=== PATIENT | female | born 1990 | race African-American/Black ===

== ENCOUNTER 2023-09-24 20:15 | Outpatient (REF) | payer OTHER, SELFPAY ==
[2023-09-28 12:10] LABS: Age Gdln ACOG Testing Note (.); HPV Aptima Negative (Negative); IGP, Aptima HPV, rfx 16/18,45 Note (.)
== END 2023-09-24 20:16 | disposition home or self-care (01) ==
LOC: LAB 20:15
PROVIDERS: PCP Obstetrics & Gynecology; Visit Provider Obstetrics & Gynecology
DX: Z01.419 Encounter for gynecological examination (general) (routine) without abnormal findings (principal)
CPT/HCPCS: 87624; G0145

== ENCOUNTER 2023-09-29 09:11 | Outpatient (OUT) | payer OTHER, SELFPAY ==
--- OUTSIDE RECORDS SUMMARY | 2023-09-29 09:14 | XMS_ITS | CCD ---
Author Name Unknown Address [address] [place] [id number] Organization [facility] Care Team Providers Care Thermodynamic Physicist Name Role Phone FRITZ CABRERA Attending Unavailable JAMES, FRITZ Admitting Unavailable UNKNOWN, PHYSICIAN Referring Unavailable UNKNOWN, PHYSICIAN Primary Care Unavailable KRIS, DR CORREIA Admitting Unavailable KRIS, DR CORREIA Attending Unavailable REQUEST, DR HOWELL LISTED Primary Care Unavaila veronica PONCE, DR CORREIA Consulting Unavailable LAURIE, CARLIN Attending Unavailable LAURIE, CARLIN Attending Unavailable LAURIE, CARLIN Referring Unavailable LAURIE, CARLIN Referring Unavailable LAURIE, CARLIN Referring Unavailable LAURIE, CARLIN Referring Unavailable LAURIE, CARLIN Referring Unavailable LAURIE, CARLIN Referring Unavailable LAURIE, CARLIN Attending Unavailable TRAVIS JENSEN Attending Unavailable LAURIE, CARLIN Attending Unavailable LAURIE, CARLIN Attending Unavailable MASOOD PONCE Attending Unavailable Allergies Allergy Classification Reported Allergen(s) Allergy Type Date of Onset Reaction(s) Facility (2 sources) Azithromycin Drug Allergy 08-06-2006 [facility] Repository (1 source) Azithromycin; Translations: [AZITHROMYCIN] Drug Allergy 05-02-2021 [facility] Repository Problems Active Problems Problem Classification Problem Date Documented Date Episodic/Chronic Immunizations and screening for infectious disease (1 source) Encounter for screening for human papillomavirus (HPV); Translations: [ENC SCREENING HUMAN PAPILLOMAVIRUS] Onset: 08-04-2022 Episodic Other nervous system disorders (2 sources) Other chronic pain; Translations: [Other chronic pain] Onset: 11-17-2022 Chronic Other screening for suspected conditions (not mental disorders or infectious disease) (4 sources) Encounter for screening for malignant neoplasm of cervix; Translations: [ENC SCREENING MALIG NEOPLASM CERV] Onset: 08-02-2022 Episodic Past or Other Problems Problem Classification Problem Date Documented Da te Episodic/Chronic Fracture of lower limb (2 sources) Displaced Maisonneuve's fracture of unspecified leg, subsequent encounter for closed fracture with routine healing; Translations: [Displaced Maisonneuve's fracture of unspecified leg, subsequent encounter for closed fracture with routine healing] Onset: 04-28-2022 Episodic Other non-traumatic joint disorders (2 sources) Pain in right ankle and joints of right foot; Translations: [Pain in right ankle and joints of right foot] Onset: 08-11-2022 Episodic Other non-traumatic joint disorders (2 sources) Effusion, right ankle; Translations: [Effusion, right ankle] Onset: 08-11-2022 Episodic Results Test Name Value Interpretation Reference Range Facility Follow-Upon 11-17-2022 Follow-Up [id number] Kori Mann 1990 F Date Provider Department Center 11/17/2022 TRAVIS JONES MP ORTHO MPORTHO Family History Family history unknown: Yes Family Status - Relation Status Age at Mother Alive Father Alive Level of Service:27201 [place] OFFICE/OUTPATIENT ESTABLISHED LOW MDM 20-29 MIN (GC) Reason for Visit and Comments: Pain [136] Normal [facility] Follow-Upon 10-27-2022 Follow-Up [id number] Kori Mann 1990 F Date Provider Department Center 10/27/2022 CARLIN WILSON MP ORTHO MPORTHO Family History Family history unknown: Yes Family Status - Relation Status Age at Mother Alive Father Alive Level of Service:10455 SC OFFICE/OUTPATIENT ESTABLISHED LOW MDM 20-29 MIN Reason for Visit and Comments: Follow-up [757679] Pain [136] [facility] Letter (Out)on 08-14-2022 Letter (Out) [id number] Kori Mann 1990 F Date Provider Department Center 08/14/2022 CARLIN WILSON MP ORTHO MPORTHO Family History Family history unknown: Yes Family Status - Relation Status Age at Mother Alive Father Alive [facility] Follow-Upon 08-11-2022 Follow-Up [id number] Kori Mann 1990 F Date Provider Department Center 08/11/2022CARLIN KELLY MPRTALEX Family History Family history unknown: Yes Family Status - Relation Status Age at Mother Alive Father Alive Level of Service:42582 SC OFFICE/OUTPATIENT ESTABLISHED LOW MDM 20-29 MIN Reason for Visit and Comments: Follow-up [769555] - Pt here for right ankle follow up with review of xr Normal [facility] Follow-Upon 06-12-2022 Follow-Up [id number] Kori Mann 1990 Date Provider Department Center 06/12/2022 CARLIN WILSON MP ORTHO MARCUSRTHO Family History Family history unknown: Yes Family Status - Relation Status Age at Mother Alive Father Alive Level of Service:97403 SC OFFICE/OUTPATIENT ESTABLISHED LOW MDM 20-29 MIN Reason for Visit and Comments: Follow-up [870721] - Pt here for right ankle with review of xr Normal [facility] Office Visiton 05-19-2022 Follow-up visit [id number] Kori Mann 1990 Date Provider Department Center 05/19/2022 CARLIN WILSON MP Family History Family history unknown: Yes Family Status - Relation Status Age at Mother Alive Father Alive Level of Service:37953 SC OFFICE/OUTPATIENT ESTABLISHED LOW MDM 20-29 MIN Reason for Visit and Comments: Pain [136] Normal [facility] Office Visiton 04-28-2022 Follow-up visit [id number] Kori Mann 1990 Provider Department Center 04/28/2022 CARLIN WILSON MP Family History Family Status - Relation Status Age at Mother Alive Father Alive Level of Service:41311 SC POSTOP FOLLOW UP VISIT RELATED TO ORIGINAL PX Reason for Visit and Comments: Follow-up [192787] - Pt present for right ankle review of x ray Normal [facility] ANKLE LEFT 3 Son 2 ANKLE LEFT 3 S [facility] Department of Radiology [address] [place] [phone] ======== Patient Name: ALISON MANN : 1990 Sex: F Age: Race: Black Pt. Location: 84 Patient Status: Ordered Date: 03/31/2022 8:25:00 AM Completed Date: 03/31/2022 08:28 AM Requesting Provider: CARLIN SULLIVAN Attending Provider: Report Copy To: Signs & Symptoms: M25.572 Pain in left ankle and joints of left foot I10 History: [place] Comments: Evaluate Exam: ANKLE LEFT 3 [facility] ======== ANKLE RIGHT 3 [facility] 03/31/2022 8:28 AM CLINICAL INDICATIONS: M25.572 Pain in left ankle and joints of left foot I10 TECHNOLOGIST COMMENTS: rt ankle surgery 02/24/ follow up QUESTION FOR THE RADIOLOGIST: Evaluate PROTOCOL: AP,Lateral and Oblique views of the right ankle were obtained. COMPARISON: XR right ankle 02/27/2022. IMPRESSION: Stable anatomic alignment and appearance of right ankle screw/plate fixation hardware without evidence for associated complication. Approved by:Kelly Burden03/31/2022 11:53 AM. I, Teresa Cardozo,have reviewed the image(s) and agree with the findings in this report. Electronically signed: Teresa Cardozo. Transcribed by: [email or web address], User Resident: KELLY PAUL Electronically Signed by: TERESA CARDOZO @ 03/31/2022 12:07 PM I personally read this/these film(s) with this resident Normal [facility] Comment on above: Order Comment: Evalu ate ANKLE RIGHT 3 [facility] 02-28-20 ANKLE RIGHT 3 [facility] Department of Radiology [address] [place] [id number] ======== Patient Name: ALISON MANN : 1990 Sex: F Age: Race: Black Pt. Location: Patient Status: D Ordered Date: 02/27/2022 9:15:00 AM Completed Date: 02/27/2022 09:18 AM Requesting Provider: FRITZ CABRERA Attending Provider: FRITZ CABRERA Report Copy To: Signs & Symptoms: Z48.89 Encounter for other specified surgical aftercare I10 History: [place] Comments: Exam: ANKLE RIGHT 3 S ======== ANKLE RIGHT 3 S 02/27/2022 9:18 AM SIGNS AND SYMPTOMS: Z48.89 Encounter for other specified surgical aftercare I10 TECHNOLOGIST COMMENTS: Ortho follow up for surgery to the right ankle x2 weeks ago. QUESTION FOR THE RADIOLOGIST: PROTOCOL: AP,Lateral and Oblique views were obtained. COMPARISON: 02/15/2022 FINDINGS: There is placement of a metallic plate and screws in the distal fibula with minimal 2 screws extending into the tibia screws appear intact. No acute fractures are seen. Normal-appearing ankle mortise joint. IMPRESSION: 1. Interval fixation of distal tibia/fibula. Electronically signed: Kolton Pemberton. Transcribed by: [id number], User Resident: Electronically Signed by: KOLTON PEMBERTON @ 02/28/2022 02:35 PM Normal [facility] Operative Reporton 2 Operative Report MR#: [id number] S [facility] Pt. Name: Alison Mann Room #: 0C Discharge Date: Birthdate: 1990 OPERATIVE REPORT DATE OF SURGERY: 02/16/2022 SURGEON: Fritz Cabrera M.D. PREOPERATIVE DIAGNOSIS: Right Maisonneuve ankle fracture. POSTPROCEDURE DIAGNOSIS: Right Maisonneuve ankle fracture. PROCEDURE PERFORMED: Open reduction and internal fixation of right ankle syndesmosis. ASSISTANTS: 1. Ty Jenkins MD, PGY-5. 2. Sheldon Thapa MD, PGY-4. 3. Mega Celis MD, PGY-2. 4. Arnaldo Tenorio MS-4. ANESTHESIA: General, endotracheal tube. FLUIDS: Please see anesthesia report. ESTIMATED BLOOD LOSS: 5 mL. IMPLANTS: Divina 4.0 mm semi-third tubular plate with associated cortical and cancellous screws. EXPLANTS: None. SPECIMENS: None. CULTURES: None. TOURNIQUET TIME: 15 minutes at 300 mmHg. FINDINGS: Stable fixation of right ankle syndesmotic injury at the end of the case. INDICATIONS FOR PROCEDURE: Patient is a 31-year-old female, who sustained a twisting injury to the right lower extremity resulting in a disruption of the syndesmotic ligaments and proximal fibular fracture, otherwise noted Maisonneuve fracture. This is an unstable ankle injury and normally requires fixation of the syndesmosis. This was discussed with the patient as well as potential risks, benefits, alternatives of operative versus non-operative treatments. Due to the instability present with this ligamentous injury, operative stabilization was decided upon. Informed consent was obtained in clinic visit. DESCRIPTION OF PROCEDURE: Patient was met in the preoperative holding area, where physical exam was performed. Informed written consent was confirmed to be correct. Operative extremity was marked with indelible ink at the time. The patient was transferred to the operative suite, where general anesthesia was induced. An area was secured with an endotracheal tube. A nonsterile tourniquet was applied to the right lower extremity before the right lower extremity was prepped and draped in normal sterile fashion. A time-out was performed identifying the patient by name, date of , medical record number, as well as procedure to be performed including site and laterality. Operative staff were also introduced at this time. Prior to incision, stress evaluation was done under fluoroscopy to confirm instability of ankle fracture. This was noted to be grossly unstable with widening of the syndesmosis in the medial clear space. The joint line was also found under fluoroscopy. An incision directly over the lateral aspect of the fibula was made down to the level of the bone being careful to protect any neurovascular structures. Soft tissue was cleaned from the edge of the bone using Carrillo elevator. A 4-hole one-third tubular plate was placed in the appropriate position and held in place distally by 4.0 mm cancellous screw and proximally by a 4 mm cortical screw. The syndesmosis was then drilled across under fluoroscopic visualization while the small upper clamps held appropriate reduction of the syndesmosis. This was a 4.0 mm fully-threaded cortical screw was placed in the distal position across the syndesmosis. A similar pathway was then drilled in the proximal hole and secured with a 2nd cortical screw. Tapia clamps were removed and syndesmosis was stressed without any medial opening. Final AP and lateral fluoroscopic visualization showed appropriate fixation of the syndesmosis and position of the plate. The wound was then thoroughly irrigated with Betadine and saline before being closed in normal layered fashion. A soft dressing was applied and a posterior slab splint was applied. The tourniquet was released at the end of the procedure. Anesthesia was reversed. The patient was extubated without complication. POSTOPERATIVE PLAN: Patient will recover from anesthesia in PACU before being discharged home. She will resort to a short course of oral narcotic pain medication, vitamin D and calcium supplementation, a 2 day course of prophylactic antibiotics standard protocol and stool softener due to narcotics. She will return to clinic in approximately 14 days for wound check and suture removal. We will anticipate her being nonweightbearing for approximately 8-12 weeks given the ligamentous nature of the injury. Dr. Fritz Cabrera was present, scrubbed, and immediately available for all critical portions of the procedure. Electronically Signed by: Fritz Cabrera M.D. 02/17/2022 09:40 A Fritz Ebraheim, M.D. I was present for the frazier and critical portions and I was otherwise immediately available to assist. Date Dict: 02/16/2022/03:56 P/Sheldon Thapa MD Date Trans: 02/16/2022 11:58 P/mmo [id number] Normal [facility] ANKLE RIGHT 2 [facility] 02-17-20 ANKLE RIGHT 2 [facility] Department of Radiology [address] [place] [phone] ======== Patient Name: ALISON MANN : 1990 Sex: F Age: Race: Black Pt. Location: OUTP Patient Status: O Ordered Date: 02/16/2022 7:10:00 AM Completed Date: 02/16/2022 04:23 PM Requesting Provider: FRITZ CABRERA Attending Provider: FRITZ CABRERA Report Copy To: Signs & Symptoms: Intra op c-arm, ORIF right ankle syndesmosis History: Intra op c-arm, ORIF right ankle syndesmosis Comments: Exam: ANKLE RIGHT 2 [facility] ======== ANKLE RIGHT 2 [facility] 02/16/2022 4:23 PM CLINICAL INDICATIONS: Intra op c-arm, ORIF right ankle syndesmosis TECHNOLOGIST COMMENTS: ORIF right ankle syndesmosis. Dr cabrera used 28 sec of fluoro time. 5 images. 1.16mGy QUESTION FOR THE RADIOLOGIST: PROTOCOL: AP(PA) and Lateral views were obtained. COMPARISON: None FINDINGS: ORIF right ankle syndesmosis. Dr cabrera used 28 sec of fluoro time. 5 images. Dose was 1.16mGy Intraoperative imaging during right ankle ORIF. IMPRESSION: Intraoperative imaging for treatment planning and localization. Technique as above. Refer to final operative report. Electronically signed: JEN JARRETT. Transcribed by: [email or web address], User Resident: Electronically Signed by: JEN JARRETT @ 02/17/2022 05:57 PM Normal [facility] POC GLUCOSE LABon 02-16-2022 Glucose [Mass/Vol] 77 mg/dL Normal 70-100 [facility] Comment on above: Performed By: #### 8 [id number] #### [facility] [address] POC URINE PREGNANCYon 2021 Beta HCG ( test) Ql (U) Negative Normal NEGATIVE [facility] Comment on above: Result Comment: Perf ormed in PACU Performed By: #### 8 4140 ####[facility] *MRSA/MSSA DNA NASALon 02-15 *MRSA/MSSA DNA NASAL Clinical Report: (D) Specimen: NASAL SWAB Collected: 02/15/2022 16:00 Status: Final Last Updated: 02/16/2022 10:32 MSSA DNA (Final) Methicillin Susceptible Staphylococcus aureus DNA Detected MRSA DNA (Final) Negative Normal [facility] Comment on above: Performed By: #### 3 1595 #### [facility] [address] ANKLE RIGHT 3 VWSon 02-16-20 22 ANKLE RIGHT 3 VWS [facility] Department of Radiology [address] [place] [phone] ======== Patient Name: ALISON MANN : 1990 Sex: F Age: Race: Black Pt. Location: 84 Patient Status: D Ordered Date: 02/15/2022 2:15:00 PM Completed Date: 02/15/2022 02:21 PM Requesting Provider: FRITZ CABRERA Attending Provider: FRITZ CABRERA Report Copy To: Signs & Symptoms: M25.571 Pain in right ankle and joints of right foot I10 History: Comments: Evaluate Exam: ANKLE RIGHT 3 [facility] ======== ANKLE RIGHT 3 [facility] 02/15/2022 2:21 PM CLINICAL INDICATIONS: M25.571 Pain in right ankle and joints of right foot I10 TECHNOLOGIST COMMENTS: right ankle pain s/p fall 1 week ago QUESTION FOR THE RADIOLOGIST: Evaluate PROTOCOL: AP,Lateral and Oblique views were obtained. COMPARISON: None FINDINGS: 3 views of the right ankle. There is normal bone density. No evidence of acute bony abnormality. Ankle mortise is preserved and minimal widening of the medial compartment. Also, there is widening of the syndesmosis. IMPRESSION: Widening of the medial ankle mortise and the syndesmosis likely representing interosseous ligament injury. No acute bony pathology. Electronically signed: Bro Rose. Transcribed by: [email or web address], User Resident: Electronically Signed by: BRO ROSE @ 02/18/2022 03:34 PM Normal [facility] Comment on above: Order Comment: Evalu ate APTTon 02-15-2022 aPTT Coag (Bld) [Time] 28.8 s Normal 25.0-35.0 [facility] Comment on above: Result Comment: ALL RESULTS MUST BE INTERPRETED WITH RESPECT TO BLOOD DRAWING ARTIFACT OR DILUTION ERROR OF ANTICOAGULANT AT THE TIME OF SAMPLING. THE APTT SHOULD NOT BE USED TO MONITOR UNFRACTIONATED HEPARIN THERAPY, THIS LABORATORY NO LONGER HAS AN ESTABLISHED THERAPEUTIC RANGE BASED ON THE APTT. IT IS RECOMMENDED THAT THE UFH - HEPARIN ASSAY (ANTI-XA ACTIVITY) BE USED FOR THIS PURPOSE. Performed By: #### 5 7307, 44503 #### [facility] [address] [place] [address], [facility] BASIC METABOLIC PANELon 07- Calcium [Mass/Vol] 9.3 mg/dL Normal 8.6-10.3 [facility] Comment on above: Performed By: #### 0 70, 83554 #### [facility] [address] [place] [address], [facility] Chloride [Moles/Vol] 107 mmol/L Normal 98-107 [facility] Comment on above: Performed By: #### 0 70, 30127 #### [facility] [address] [place] [address], [place] CO2 [Moles/Vol] 21 mmol/L Normal 21-[address] [facility] Comment on above: Performed By: #### 0 70, 88764 #### [facility] [address] [place] [address], [place] Creatinine [Mass/Vol] 0.73 mg/dL Normal 0.60-1.20 [facility] Comment on above: Performed By: #### 0 70, #### [facility] [address] [place] [address], [place] GFR/1.73 sq M.predicted among blacks MDRD (S/P/Bld) [Vol rate/Area] mL/min/{1.73_m2} Normal >60 [facility] Comment on above: Performed By: #### 0 70, 54388 #### [facility] [address] [place] [address], [place] GFR/1.73 sq M.predicted among non-blacks MDRD (S/P/Bld) [Vol rate/Area] mL/min/{1.73_m2} Normal >60 [facility] Comment on above: Performed By: #### 0 70, [address]5711 #### [facility] [address] [place] [id number], [facility] Glucose [Mass/Vol] 82 mg/dL Normal 70-100 [facility] Comment on above: Performed By: #### 0 70, #### [facility] [address] [facility] [place] [address], [facility] Potassium [Moles/Vol] 3.9 mmol/L Normal 3.5-5.1 [facility] Comment on above: Performed By: #### 0 70, #### [facility] [address] [place] [address], [facility] Sodium [Moles/Vol] 137 mmol/L Normal 136-145 [facility] Comment on above: Performed By: #### 0 70, #### [facility] [address] [facility] [place] [address], [facility] Urea nitrogen [Mass/Vol] 13 mg/dL Normal 7-25 [facility] Comment on above: Performed By: #### 0 70, 60272 #### [facility] [address] [facility] [place] [address], [facility] CBC W/DIFFon 02-15-2022 ABS IMM GRANS 0.0 10*3/uL Normal 0.0-0.2 [facility] Comment on above: Performed By: #### 5 3 #### [facility] [address] [place] [address], [facility] ABS NEUTROPHILS 4.0 10*3/uL Normal 1.6-7.6 [facility] Comment on above: Performed By: #### 5 0103 #### [facility] [address] [place] [address], [facility] Basophils (Bld) [#/Vol] 0.0 10*3/uL Normal 0.0-0.2 [facility] Comment on above: Performed By: #### 5 0103 #### [facility] [address] [place] [address], [facility] Basophils/100 WBC (Bld) 0.5 % Normal 0.0-1.0 [facility] Comment on above: Performed By: #### 5 0103 #### [facility] [address] [facility] [address], [facility] Eosinophils (Bld) [#/Vol] 0.0 10*3/uL Normal 0.0-0.5 [facility] Comment on above: Performed By: #### 102 #### [facility] [address] [place] [address], [facility] Eosinophils/100 WBC (Bld) 0.5 % Normal 0.0-6.0 [facility] Comment on above: Performed By: #### 5 3 #### [facility] [address] Erythrocyte distribution width (RBC) [Ratio] 12.6 % Normal 11.5-15.0 [facility] Comment on above: Performed By: #### 5 3 #### [facility] [address] [facility]. [address] Hematocrit (Bld) [Volume fraction] 39.8 % Normal 36.0-45.0 [facility] Comment on above: Performed By: #### 5 3 #### [facility] [address] [place] [address], [facility] Hemoglobin (Bld) [Mass/Vol] 13.3 g/dL Normal 12.0-15.0 [facility] Comment on above: Performed By: #### 5 0103 #### [facility] [address] IMMATURE GRANS 0.0 % Normal 0.0-1.0 [facility] Comment on above: Performed By: #### 5 3 #### [facility] [address] [place] [address], [facility] Lymphocytes (Bld) [#/Vol] 1.4 10*3/uL Normal 1.2-4.0 [facility] Comment on above: Performed By: #### 102 #### [facility] [address] [place] [address], [facility] Lymphocytes/100 WBC (Bld) 24.6 % Normal 20.0-45.0 [facility] Comment on above: Performed By: #### 102 #### [facility] [address] MCH (RBC) [Entitic mass] 29.1 pg Normal 27.0-33.0 [facility] Comment on above: Performed By: #### 5 102 #### [facility] [address] MCHC (RBC) [Mass/Vol] 33.4 g/dL Normal 32.0-35.0 [facility] Comment on above: Performed By: #### 5 3 #### [facility] [address] MCV (RBC) [Entitic vol] 87.1 fL Normal 82.0-98.0 [facility] Comment on above: Performed By: #### 5 3 #### [facility] [address] [place] [address], [facility] Monocytes (Bld) [#/Vol] 0.3 10*3/uL Normal 0.1-1.0 [facility] Comment on above: Performed By: #### 5 0103 #### [facility] [address] [facility] [place] [address], [facility] MONOS 5.5 % Normal 5.0-12.0 [facility] Comment on above: Performed By: #### 5 0103 #### [facility] [address] [facility] [place] [address], [facility] Neutrophils/100 WBC (Bld) 68.9 % Normal 40.0-72.0 [facility] Comment on above: Performed By: #### 5 0103 #### [facility] [address] [place] [address], [facility] Nucleated RBC/100 WBC (Bld) [Ratio] 0 % Normal 0-0 [facility] Comment on above: Performed By: #### 5 010 #### [facility] [address] PLAT CNT 273 10*3/uL Normal 150-400 [facility] Comment on above: Performed By: #### 5 0103 #### [facility] [address] [place] [address], [facility] RBC (Bld) [#/Vol] 4.57 10*6/uL Normal 3.80-5.00 [facility] Comment on above: Performed By: #### 5 3 #### [facility] [address] [place] [address], [facility] WBC (Bld) [#/Vol] 5.85 10*3/uL Normal 4.00-10.60 [facility] Comment on above: Performed By: #### 5 3 #### [facility] [address] POC SARS COV2 IDon 2 SARS-CoV-2 (COVID-19) RNA MIRNA+probe Ql (Unsp spec) Negative Normal NEGATIVE [facility] Comment on above: Result Comment: ID N OW COVID-19 assay performed on the ID NOW Instrument is a rapid molecular in vitro diagnostic test utilizing an isothermal nucleic acid amplification technology intended for the qualitative detection of nucleic acid from the SARS-CoV-2 virus in direct anterior nasal (nasal), nasopharyngeal or throat swabs from individuals who are suspected of COVID-19 by their healthcare provider within the first seven days of the onset of symptoms. Testing is limited to laboratories certified under the Clinical Laboratory Improvement Amendments of 1988 (CLIA), 42 U.S.C. ???263a,that meet the requirements to perform high, moderate, or waived complexity tests. The ID NOW COVID-19 assay is also authorized for use at the Point of Care (POC), i.e., in patient care settings operating under a CLIA Certificate of Waiver, Certificate of Compliance, or Certificate of Accreditation. Performed By: #### 3 1921 ####[facility] PROTHROMBIN TIMEon 2 INR Coag (PPP) [Relative time] 0.99 {INR} Normal 0.91-1.16 [facility] Comment on above: Result Comment: ACCC P RECOMMENDED INR FOR WARFARIN THERAPY ------ ------- CONDITION INR PROPHYLAXIS OF VENOUS THROMBOSIS 2-3 (HIGH-RISK SURGERY) TREATMENT OF VENOUS THROMBOSIS 2-3 TREATMENT OF PULMONARY EMBOLISM 2-3 PREVENTION OF SYSTEMIC EMBOLISM: 2-3 ACUTE MYOCARDIAL INFARCTION TISSUE HEART VALVES VALVULAR HEART DISEASE ATRIAL FIBRILLATION RECURRENT SYSTEMIC EMBOLISM MECHANICAL HEART VALVE 2.5-3.5 FROM: ORAL ANTICOAGULANTS. MECHANISM OF ACTION, CLINICAL EFFECTIVENESS, AND OPTIMAL THERAPEUTIC RANGE. CHEST 1995;108:231S-246S. Performed By: #### 5 7307, 49711 #### [facility] [address] [facility]. [address] PT Coag (PPP) [Time] 13.1 s Normal 12.3-14.8 [facility] Comment on above: Result Comment: ALL RESULTS MUST BE INTERPRETED WITH RESPECT TO BLOOD DRAWING ARTIFACT OR DILUTION ERROR OF ANTICOAGULANT AT THE TIME OF SAMPLING. Performed By: #### 5 7307, 07458 #### [facility] [address] [facility]. [address] VITAMIN D 25-HYDROXYon 02-15 VITAMIN D 25-OH 32.1 ng/mL Normal 30.0-80.0 [facility] Comment on above: Result Comment: >80. 0 Toxicity possible Performed By: #### 0 0071, 44226 #### [facility] [address] [facility]. [address] MRI Ankle w/o Righton 2021 MRI Ankle w/o Right HISTORY: Medial and lateral pain for 1 week. Recent fall. Ankle sprain. COMPARISON: Radiographs 02/07/2022 TECHNIQUE: Multiplanar multisequence MRI of the right ankle was performed without contrast. FINDINGS: The Achilles tendon is intact. The plantar fascia is intact and without thickening or nodularity. Tibialis posterior, flexor digitorum longus, and flexor digitorum longus tendons are intact. No space-occupying lesion within the tarsal tunnel. Peroneus longus and peroneus brevis tendons are intact. Extensor tendons are intact. The anterior and posterior tibiofibular ligaments are intact. The anterior and posterior talofibular ligaments and calcaneofibular ligament are intact. Superficial and deep fibers of the deltoid ligament are intact. Spring ligament is intact. Sinus tarsi fat is preserved. No well defined or measurable articular cartilage defect of the tibial plafond, talar dome, or subtalar joint. Moderate ankle joint effusion. No evidence of fracture or stress reaction of the visualized bones. Mild contusion of the posterior tibial plafond. Edema is present along the visualized portion of the distal tibia and interposed between the distal tibia and fibula. Abnormal signal and morphology of the anterior tibiofibular ligament Sub-cutaneous soft tissue edema of the medial and lateral ankle and dorsum of the foot. IMPRESSION: No acute fracture. Mild contusion of the posterior tibial plafond. Findings concerning for syndesmotic injury. Moderate ankle joint effusion. Report reported and signed by Junito Aviles on 02/14/20[address] [facility] [employer] Coding Summaryon 02-11-2019 Coding Summary CODING DATE: 02/11/2019 [facility] STATUS: Home PAYOR: Commercial Insurance ADMIT DX: REASON FOR VISIT DX: R07.9 Chest pain, unspecified FINAL DX: PRINCIPAL: R07.9 Chest pain, unspecified SECONDARY: PROCEDURES DOCTOR NAME DATE NOTE: The code number assigned matches the documented diagnosis and / or procedure in the patient's chart. However, the narrative phrase printed from the coding software may appear abbreviated, or result in slightly different terminology. Coded By: Alexia Hahn Date Saved: 02/11/2019 11:38 am [facility] Coding Summary CODING DATE: 02/11/2019 [facility] STATUS: Home PAYOR: Commercial Insurance APC DESCRIPTION 5521 Level 1 Imaging without Contrast ADMIT DX: REASON FOR VISIT DX: R07.9 Chest pain, unspecified FINAL DX: PRINCIPAL: R07.9 Chest pain, unspecified SECONDARY: PYMT PROC APC STAT DESCRIPTION DOCTOR NAME DATE NOTE: The code number assigned matches the documented diagnosis and / or procedure in the patient's chart. However, the narrative phrase printed from the coding software may appear abbreviated, or result in slightly different terminology. Coded By: Alexia Hahn Date Saved: 02/11/2019 11:37 am [facility] .Auto Diff 1on 02-04-2019 Auto Peñuelas % 8 % Normal 12 [facility] Comment on above: Performed By: #### 7 040998, 8788347, 0750159651, 34799648, 3028869750, 4748924, 2405854 #### [facility] (DEFAULT) [address] [place] [address] Baso Abs# 0.0 x10 Normal 0.0-0.2 [facility] Comment on above: Performed By: #### 7 702648, 8087463, 8502597186, 05868518, 1569079939, 5910606, 4952109 #### [facility] (DEFAULT) [address] [place] [address] 17199 Basophils/100 WBC (Bld) 0.6 % Normal 0.2-2.0 [facility] Comment on above: Performed By: #### 7 102393, 3919771, 2485476517, 24899073, 8801967930, 0482226, 0284220 #### [facility] (DEFAULT) [address] [place] [address] 62905 Eos Abs# 0.2 x10 Normal 0.0-0.4 [facility] Comment on above: Performed By: #### 7 674466, 1908991, 1997618761, 91667695, 6304017982, 2093754, 8862201 #### [facility] (DEFAULT) [address] [place] [address] 14715 Eosinophils/100 WBC (Bld) 3.4 % Normal 0.9-4.0 [facility] Comment on above: Performed By: #### 7 019902, 2287105, 6363720207, 04803858, 4751251884, 9065488, 4123465 #### [facility] (DEFAULT) [address] [place] [address] 34257 Lymphocytes (Bld) [#/Vol] 2.2 x10 Normal 1.3-2.9 [facility] Comment on above: Performed By: #### 7 291078, 7983132, 0489342373, 03638693, 0560741422, 5292000, 4118845 #### [facility] (DEFAULT) [address] [place] [address] 35073 Lymphocytes/100 WBC (Bld) 47 % Normal 14-48 [facility] Comment on above: Performed By: #### 7 589822, 4663425, 9514796859, 21299494, 5983736495, 4889866, 6553676 #### [facility] (DEFAULT) [address] [place] [address] 35718 Peñuelas Abs# 0.4 x10 Normal 0.0-0.8 [facility] Comment on above: Performed By: #### 7 030708, 6108797, 1940558688, 81407910, 1439018086, 5802756, 8053420 #### [facility] (DEFAULT) [address] [place] [address] Neut Abs# 1.9 x10 Normal 1.5-9.2 [facility] Comment on above: Performed By: #### 7 412799, 6419311, 9783884732, 91118223, 2301843151, 3197886, 6411346 #### [facility] (DEFAULT) [address] [place] [address] Neutrophils/100 WBC (Bld) 41 % Low 44-88 [facility] Comment on above: Performed By: #### 7 926027, 7332276, 8543025671, 76114932, 2864135158, 4689923, 9288488 #### [facility] (DEFAULT) [address] [place] [address] CBC w/ Auto Diffon 9 Erythrocyte distribution width (RBC) [Ratio] 13.3 % Normal 11.5-15.0 [facility] Comment on above: Performed By: #### 7 363357, 4430315, 0597872810, 19181919, 0043401950, 7005285, 2567886 #### [facility] (DEFAULT) [address] [place] [address] Hematocrit (Bld) [Volume fraction] 32.7 % Low 33.7-40.4 [facility] Comment on above: Performed By: #### 7 600166, 0262456, 5838647359, 20334814, 1928743878, 2773974, 0059286 #### [facility] (DEFAULT) [address] [place] [address] Hemoglobin (Bld) [Mass/Vol] 10.6 g/dL Low 11.3-15.9 [facility] Comment on above: Performed By: #### 7 588762, 8331810, 1023429979, 76199784, 4484318858, 2326477, 2453708 #### [facility] (DEFAULT) [address] [place] [address] 35749 Man Diff? Auto Normal [facility] Comment on above: Performed By: #### 7 602534, 0513604, 6314688602, 80094555, 7097938449, 4118995, 9559442 #### [facility] (DEFAULT) [address] [place] [address] 48608 MCH (RBC) [Entitic mass] 26 pg Normal 24-34 [facility] Comment on above: Performed By: #### 7 904692, 6743755, 1920718383, 96761292, 0873955768, 9479330, 1369255 #### [facility] (DEFAULT) [address] [place] [address] 44147 MCHC (RBC) [Mass/Vol] 32 g/dL Normal 26-37 [facility] Comment on above: Performed By: #### 7 417270, 2163240, 5104510320, 55668771, 8020526189, 8826078, 1767415 #### [facility] (DEFAULT) [address] [place] [address] 66242 MCV (RBC) [Entitic vol] 81 fL Normal 81-100 [facility] Comment on above: Performed By: #### 7 327371, 2716498, 4840821723, 85471116, 9224789917, 1889675, 0282479 #### [facility] (DEFAULT) [address] [place] [address] 29051 Platelet mean volume (Bld) [Entitic vol] 9.7 fL Normal 6.3-10.2 [facility] Comment on above: Performed By: #### 7 413840, 6692304, 8218961703, 37918592, 4960973590, 8470916, 2570073 #### [facility] (DEFAULT) [address] [place] [address] 65754 Platelets (Bld) [#/Vol] 243 x10 Normal 138-427 [facility] Comment on above: Performed By: #### 7 002901, 9390198, 7342835454, 38550264, 8732947649, 9653297, 0707215 #### [facility] (DEFAULT) [address] [place] [address] 27773 RBC (Bld) [#/Vol] 4.02 x10 Normal 3.70-5.30 [facility] Comment on above: Performed By: #### 7 205859, 7719029, 4204800432, 94998033, 2592493820, 5552251, 5386221 #### [facility] (DEFAULT) [address] [place] [address] 29894 WBC (Bld) [#/Vol] 4.7 x10 Normal 3.5-10.5 [facility] Comment on above: Performed By: #### 7 016526, 4917397, 8757224612, 81959651, 0113852899, 0741950, 7674625 #### [facility] (DEFAULT) [address] [place] [address] 16052 [facility] Standardon 02-04-2019 eGFR Non AA >60 [facility] Comment on above: Performed By: #### 7 769919, 0835560, 2399079771, 55170924, 1435066031, 2029574, 5615197 #### [facility] (DEFAULT) [address] [place] [address] eGFR AA >60 [facility] Comment on above: Result Comment: Rn Perinatal maria elena Kidney disease could be indicated at eGFRs of less than 60 ml/min/1.73m2. Kidney Failure is indicated at less than 15 ml/min/1.73m2 Performed By: #### 7 723064, 4916217, 6576504278, 75269269, 7002085743, 4399277, 8699601 #### [facility] (DEFAULT) [address] [place] [address] 19171 Albumin [Mass/Vol] 3.7 g/dL Normal 3.5-5.0 [facility] Comment on above: Performed By: #### 7 939754, 3874058, 9842887950, 48183104, 9880944552, 3378087, 8211638 #### [facility] (DEFAULT) [address] [place] [address] Albumin/Globulin [Mass ratio] 1.2 {ratio} Low 1.4-2.6 [facility] Comment on above: Performed By: #### 7 581730, 5208230, 5662458705, 78892963, 1610746455, 3032847, 0934595 #### [facility] (DEFAULT) [address] [place] [address] Alk Phos 45 IU/L Normal 32-91 [facility] Comment on above: Performed By: #### 7 745904, 6331160, 7541791482, 94016194, 0141863304, 3065630, 2167053 #### [facility] (DEFAULT) [address] [place] [address] ALT/SGPT 13.0 IU/L Low 14.0-54.0 [facility] Comment on above: Performed By: #### 7 593099, 1392968, 2133794659, 96827492, 2325515076, 4311866, 0297225 #### [facility] (DEFAULT) [address] [place] [address] Anion gap [Moles/Vol] 13.0 mmol/L Normal 5.0-19.0 [facility] Comment on above: Performed By: #### 7 687935, 4927858, 0406165553, 96758536, 9140237150, 5018349, 8436773 #### [facility] (DEFAULT) [address] [place] [address] AST/SGOT 24 IU/L Normal 15-41 [facility] Comment on above: Performed By: #### 7 127770, 9524930, 5414043417, 12136627, 1656699142, 0447919, 5899181 #### [facility] (DEFAULT) [address] [place] [address] Bili Total 0.1 mg/dL Low 0.3-1.2 [facility] Comment on above: Performed By: #### 7 772783, 9895139, 3063949074, 13754675, 8121073008, 4761236, 9408501 #### [facility] (DEFAULT) [address] [place] [address] 48839 Calcium [Mass/Vol] 8.7 mg/dL Low 8.9-10.3 [facility] Comment on above: Performed By: #### 7 200882, 3686317, 7122003985, 26659677, 8727029026, 8144254, 3677395 #### [facility] (DEFAULT) [address] [place] [address] 37462 Chloride [Moles/Vol] 107 mmol/L Normal 101-111 [facility] Comment on above: Performed By: #### 7 577632, 1930434, 8331926997, 84047597, 8022915080, 1387168, 1870032 #### [facility] (DEFAULT) [address] [place] [address] 27110 CO2 [Moles/Vol] 23 mmol/L Normal 21-32 [facility] Comment on above: Performed By: #### 7 968175, 1314069, 5615118568, 04553533, 1060073750, 1454115, 6780236 #### [facility] (DEFAULT) [address] [place] [address] 70804 Creatinine [Mass/Vol] 0.89 mg/dL Normal 0.60-1.30 [facility] Comment on above: Performed By: #### 7 781510, 5585995, 4696378341, 05076292, 1616098115, 1447142, 2047572 #### [facility] (DEFAULT) [address] [place] [address] 49840 Globulin (S) [Mass/Vol] 3.1 g/dL Normal 1.5-4.3 [facility] Comment on above: Performed By: #### 7 350353, 6825227, 4852247847, 49260823, 3375713174, 6067288, 5978087 #### [facility] (DEFAULT) [address] [place] [address] 62069 Glucose [Mass/Vol] 99.0 mg/dL Normal 74.0-118.0 [facility] Comment on above: Performed By: #### 7 626848, 7868683, 4245551900, 51008880, 0519107067, 0938243, 2947522 #### [facility] (DEFAULT) [address] [place] [address] 68358 Osmolality [Osmolality] 278 mOsm/L [facility] Comment on above: Performed By: #### 7 512386, 3683096, 6394221833, 46668409, 5379267955, 8563472, 6259975 #### [facility] (DEFAULT) [address] [place] [address] 75167 Potassium [Moles/Vol] 3.9 mmol/L Normal 3.6-5.1 [facility] Comment on above: Performed By: #### 7 343381, 8631079, 6107914810, 53671751, 8385078705, 3188100, 1962929 #### [facility] (DEFAULT) [address] [place] [address] 60549 Protein [Mass/Vol] 6.8 g/dL Normal 6.5-8.1 [facility] Comment on above: Performed By: #### 7 313934, 8235095, 7955512626, 41386318, 8354786020, 3934932, 5727847 #### [facility] (DEFAULT) [address] [place] [address] 99273 Sodium [Moles/Vol] 139.0 mmol/L Normal 136.0-144.0 [facility] Comment on above: Performed By: #### 7 645451, 3877872, 0375096991, 44608794, 1334660088, 1746382, 2885978 #### [facility] (DEFAULT) [address] [place] [address] 50087 Urea nitrogen [Mass/Vol] 13 mg/dL Normal 8-26 [facility] Comment on above: Performed By: #### 7 964172, 1631171, 8395091373, 18237632, 6585785570, 2606969, 6308484 #### [facility] (DEFAULT) [address] [place] [address] 88852 Urea nitrogen/Creatinine [Mass ratio] 15.0 mg/mg Normal 4.6-16.2 [facility] Comment on above: Performed By: #### 7 425676, 3712103, 5020617710, 86395833, 1520014337, 6603641, 5045130 #### [facility] (DEFAULT) [address] [place] [address] 48660 D-Dimeron 02-04-2019 D-Dimer 0.32 mg/L FEU Normal 0.19-0.50 [facility] Comment on above: Result Comment: The INNOVANCE D-Dimer assay (Cutoff Value of > 0.50) is intended for the use as an aid in the diagnosis of venous thromboembolism (VTE) deep vein thrombosis (DVT) or pulmonary embolism (PE). The measurement of D-Dimer should not be used as an aid in the diagnosis of VTE in patients with: ? Therapeutic dose anticoagulant therapy for >24 hours ? Fibrinolytic therapy within previous 7 days ? Trauma or surgery within previous 4 weeks ? Disseminated malignancies ? Aortic aneurysm ? Sepsis, sever infections, pneumonia, severe skin infections ? Liver cirrhosis ? Performed By: #### 7 435576, 8571509, 9294995351, 21492485, 5438580289, 2003611, 4746649 #### [facility] (DEFAULT) [address] [place] [address] 56850 ED Clinical Summaryon 2018 ED Clinical Summary [facility] - Emergency Department [address] [place], [place] [id number] ED Clinical Summary PERSON INFORMATION Name: ALISON MANN Age: 28 Years Sex: FEMALE : [birth year] MRN: Acct#: Visit Reason: Chest pain; CHEST PAIN Arrival: 02/03/19 22:03:00 Discharge: 02/04/19 00:28:00 LOS: 000 02:25 Check In: 02/03/19 22:03:00 Checkout:02/04/19 00:28:00 Address: [facility] [address] PCP: GILBERTO SANCHEZ PROVIDER INFORMATION Provider Role Assigned Unassigned Jin KARIMI, Cynthia Ling ED Nurse 02/03/19 22:33:23 Inez Alexander D.O. ED Provider 02/03/19 22:34:26 Briana KARIMI, Sana ED Nurse 02/03/19 23:15:27 VITALS INFORMATION Vital Sign Triage Latest Temperature Tympanic Temperature Temporal Artery Pulse Rate 74 bpm 74 bpm O2 Sat 100 % 100 % Respiratory Rate 16 br/min 16 br/min Blood Pressure 126 mmHg/81 mmHg 126 mmHg/81 mmHg MEDICAL INFORMATION Medications Given: Medication Dose Route aspirin 324 mg Chewed Allergy Information: Zithromax Z-Otis PHYSICIAN DOCUMENTATION Patient: ALISON MANN Age: 28 years Sex: FEMALE : 86 Associated Diagnoses: Chest pain Author: Inez Alexander D.O. Basic Information Time seen: Date & time 02/03/19 22:18:00. History source: Patient. Arrival mode: Private vehicle. History limitation: None. History of Present Illness The patient presents with chest pain. This 28-year-old female with history of asthma presents for evaluation of left-sided chest pain. She states the pain started around 1 PM while she was lying down with her daughter. It has waxed and waned throughout the day. She has not taken any medications for it. She denies any shortness of breath, dizziness or diaphoresis. She denies any abdominal pain or back pain. She denies any recent heavy lifting or trauma to her chest. She has no loss of any pain or swelling. She denies the possibility of as she just finished her period. She denies a history of tobacco use. She uses alcohol occasionally. She denies any family history of coronary artery disease. Review of Systems Constitutional symptoms: Negative except as documented in HPI. Skin symptoms: Negative except as documented in HPI. Eye symptoms: Negative except as documented in HPI. ENMT symptoms: Negative except as documented in HPI. Respiratory symptoms: Negative except as documented in HPI. Cardiovascular symptoms: Chest pain, mild pain, achy. Gastrointestinal symptoms: Nausea. Genitourinary symptoms: Negative except as documented in HPI. Musculoskeletal symptoms: Negative except as documented in HPI. Neurologic symptoms: Negative except as documented in HPI. Psychiatric symptoms: Negative except as documented in HPI. Endocrine symptoms: Negative except as documented in HPI. Hematologic/Lymphatic symptoms: Negative except as documented in HPI. Allergy/immunologic symptoms: Negative except as documented in HPI. Health Status Allergies: No allergies have been recorded.. Past Medical/ Family/ Social History Medical history: No active or resolved past medical history items have been selected or recorded.. Surgical history: No active procedure history items have been selected or recorded.. Family history: No family history items have been selected or recorded.. Social history: Social & Psychosocial Habits No Data Available . Problem list: No qualifying data available . Physical Examination Vital Signs Time: 02/03/19 22:20:00. General: Alert, no acute distress. Skin: Warm, dry, pink. Head: Normocephalic. Neck: Supple, trachea midline, no tenderness. Eye: Pupils are equal, round and reactive to light, extraocular movements are intact. Cardiovascular: Regular rate and rhythm. Respiratory: Lungs are clear to auscultation, respirations are non-labored, breath sounds are equal, Symmetrical chest wall expansion, No reproducible chest wall tenderness. Chest wall: No tenderness. Gastrointestinal: Soft, Nontender, Non distended, Normal bowel sounds. Neurological: Alert and oriented to person, place, time, and situation, No focal neurological deficit observed, CN II-XII intact. Lymphatics: No lymphadenopathy. Psychiatric: Cooperative. Medical Decision Making Orders Launch Orders Laboratory: hCG Quantitative (Order): Blood, Stat collect, 02/03/19 22:21 EDT, Lab Collect D-Dimer (Order): Blood, Stat collect, 02/03/19 22:21 EDT, Lab Collect CMP Standard (Order): Blood, Stat collect, 02/03/19 22:21 EDT, Lab Collect CBC w/ Auto Diff (Order): Blood, Stat collect, 02/03/19 22:21 EDT, Lab Collect Troponin I (Order): Blood, Stat collect, 02/03/19 22:21 EDT, Lab Collect, Launch Orders Pharmacy: Sodium Chloride 0.9% intravenous solution (Order): 1,000 mL, 999 mL/hr, IV, NOW Zofran (Order): 4 mg, IV Push, Once aspirin (Order): 324 mg, Chewed, Once, Launch Orders Radiology: XR Chest 2 Views (Order): 02/03/19 22:23 EDT Stat, cough, Allow Modification Per Radiologist, Transport Mode: Wheelchair, Launch Orders Cardiovascular: EKG (Order): 02/03/19 22:54 EDT, Abnormal EKG, No, Launch Orders Radiology: XR Chest 2 Views (Order): 02/03/19 23:40 EDT Stat, cough, Allow Modification Per Radiologist, Transport Mode: Wheelchair. Electrocardiogram: Sinus bradycardia at 59 bpm, normal axis, normal intervals, no acute ST segment elevation or T-wave inversion. Results review: Lab results : Lab Flowsheet 02/03/19 22:30 EDT Sodium Level 139.0 mmol/L Potassium Level 3.9 mmol/L Chloride Level 107 mmol/L CO2 23 mmol/L Anion Gap 13.0 mmol/L Glucose Level 99.0 mg/dL BUN 13 mg/dL Creatinine Level 0.89 mg/dL BUN/Creat Ratio 15.0 eGFR AA >60 mL/min/1.73m2 NA eGFR Non AA >60 mL/min/1.73m2 NA Calcium Level 8.7 mg/dL LOW Bili Total 0.1 mg/dL LOW Alk Phos 45 IU/L AST/SGOT 24 IU/L ALT/SGPT 13.0 IU/L LOW Protein Total 6.8 gm/dL Albumin Level 3.7 gm/dL Globulin 3.1 gm/dL A/G Ratio 1.2 LOW Osmolality 278 mOsm/L NA Troponin-I <0.03 ng/mL hCG Quantitative <0.6 mIU/mL WBC 4.7 x103/mcL RBC 4.02 x106/mcL Hgb 10.6 gm/dL LOW Hct 32.7 % LOW MCV 81 fL MCH 26 pg MCHC 32 gm/dL RDW 13.3 % Platelet 243 x103/mcL MPV 9.7 fL Auto Neut % 41 % LOW Auto Lymph % 47 % Auto [place] % 8 % Auto Eos % 3.4 % Auto Baso % 0.6 % Neut Abs# 1.9 x103/mcL Lymph Abs# 2.2 x103/mcL [place] Abs# 0.4 x103/mcL Eos Abs# 0.2 x103/mcL Baso Abs# 0.0 x103/mcL D-Dimer 0.32 mg/L FEU Tube Collected Yes . Chest X-Ray: Interpretation by Emergency Physician, No acute pulmonary infiltrate, normal mediastinum, normal cardiac borders. Impression and Plan This otherwise healthy 28-year-old female presents for evaluation of left-sided chest pain. Started approximately 9 hours prior to arrival. Upon arrival an EKG was performed that was a normal sinus rhythm/sinus bradycardia without any acute changes. The patient does not smoke or have any cardiac risk factors. Cardiac labs including troponin and d-dimer are were ordered and are reviewed. The patient's labs including the troponin and d-dimer are negative. The patient did receive 324 mg of aspirin in the emergency department. Chest x-ray is negative for acute findings. The patient is hemodynamically stable and her chest pain does not appear to be cardiac in nature at this time. She'll be discharged home to follow up with her family physician. She denies any additional needs for pain medication. She is in agreement with this plan. Diagnosis Chest pain ([id number] R07.9, Discharge, Medical) Plan Condition: Improved, Stable. Disposition: Discharged: Time 02/04/19 00:18:00, to home. Prescriptions: Launch prescriptions Pharmacy: ibuprofen 600 mg oral tablet (Prescribe): 600 mg = 1 tab(s), PO, q8hr, 30 tab(s), 0 Refill(s). Patient was given the following educational materials: Nonspecific Chest Pain, Xeis-si-Vxbr, Nonspecific Chest Pain, Nhgj-db-Mxaw. Follow up with: GILBERTO SANCHEZ Within 3 to 5 days. Counseled: Patient, Family, Regarding diagnosis, Regarding diagnostic results, Regarding treatment plan, Regarding prescription, Patient indicated understanding of instructions. DISCHARGE INFORMATION: Discharge Disposition: Home Discharge Location: Home PATIENT EDUCATION INFORMATION Instructions: Nonspecific Chest Pain, Lolw-ok-Bzdd Follow-Up: With: Address: When: GILBERTO SANCHEZ [address] [place] [address] [address] [place] [address] [facility] () Within 3 to 5 days DIAGNOSIS: Chest pain Patient Understands: Yes - Patient/family/caregiv er verbalizes understanding of instructions given Comment: [facility] ED Note - Physicianon 2018 ED Note - Physician Patient: DEBRA MANN Age: 28 years Sex: FEMALE : 86 Associated Diagnoses: Chest pain Author: Inez Alexander D.O. Basic Information Time seen: Date & time 02/03/19 22:18:00. History source: Patient. Arrival mode: Private vehicle. History limitation: None. History of Present Illness The patient presents with chest pain. This 28-year-old female with history of asthma presents for evaluation of left-sided chest pain. She states the pain started around 1 PM while she was lying down with her daughter. It has waxed and waned throughout the day. She has not taken any medications for it. She denies any shortness of breath, dizziness or diaphoresis. She denies any abdominal pain or back pain. She denies any recent heavy lifting or trauma to her chest. She has no loss of any pain or swelling. She denies the possibility of as she just finished her period. She denies a history of tobacco use. She uses alcohol occasionally. She denies any family history of coronary artery disease. Review of Systems Constitutional symptoms: Negative except as documented in HPI. Skin symptoms: Negative except as documented in HPI. Eye symptoms: Negative except as documented in HPI. ENMT symptoms: Negative except as documented in HPI. Respiratory symptoms: Negative except as documented in HPI. Cardiovascular symptoms: Chest pain, mild pain, achy. Gastrointestinal symptoms: Nausea. Genitourinary symptoms: Negative except as documented in HPI. Musculoskeletal symptoms: Negative except as documented in HPI. Neurologic symptoms: Negative except as documented in HPI. Psychiatric symptoms: Negative except as documented in HPI. Endocrine symptoms: Negative except as documented in HPI. Hematologic/Lymphatic symptoms: Negative except as documented in HPI. Allergy/immunologic symptoms: Negative except as documented in HPI. Health Status Allergies: No allergies have been recorded.. Past Medical/ Family/ Social History Medical history: No active or resolved past medical history items have been selected or recorded.. Surgical history: No active procedure history items have been selected or recorded.. Family history: No family history items have been selected or recorded.. Social history: Social & Psychosocial Habits No Data Available . Problem list: No qualifying data available . Physical Examination Vital Signs Time: 02/03/19 22:20:00. General: Alert, no acute distress. Skin: Warm, dry, pink. Head: Normocephalic. Neck: Supple, trachea midline, no tenderness. Eye: Pupils are equal, round and reactive to light, extraocular movements are intact. Cardiovascular: Regular rate and rhythm. Respiratory: Lungs are clear to auscultation, respirations are non-labored, breath sounds are equal, Symmetrical chest wall expansion, No reproducible chest wall tenderness. Chest wall: No tenderness. Gastrointestinal: Soft, Nontender, Non distended, Normal bowel sounds. Neurological: Alert and oriented to person, place, time, and situation, No focal neurological deficit observed, CN II-XII intact. Lymphatics: No lymphadenopathy. Psychiatric: Cooperative. Medical Decision Making Orders Launch Orders Laboratory: hCG Quantitative (Order): Blood, Stat collect, 02/03/19 22:21 EDT, Lab Collect D-Dimer (Order): Blood, Stat collect, 02/03/19 22:21 EDT, Lab Collect CMP Standard (Order): Blood, Stat collect, 02/03/19 22:21 EDT, Lab Collect CBC w/ Auto Diff (Order): Blood, Stat collect, 02/03/19 22:21 EDT, Lab Collect Troponin I (Order): Blood, Stat collect, 02/03/19 22:21 EDT, Lab Collect, Launch Orders Pharmacy: Sodium Chloride 0.9% intravenous solution (Order): 1,000 mL, 999 mL/hr, IV, NOW Zofran (Order): 4 mg, IV Push, Once aspirin (Order): 324 mg, Chewed, Once, Launch Orders Radiology: XR Chest 2 Views (Order): 02/03/19 22:23 EDT Stat, cough, Allow Modification Per Radiologist, Transport Mode: Wheelchair, Launch Orders Cardiovascular: EKG (Order): 02/03/19 22:54 EDT, Abnormal EKG, No, Launch Orders Radiology: XR Chest 2 Views (Order): 02/03/19 23:40 EDT Stat, cough, Allow Modification Per Radiologist, Transport Mode: Wheelchair. Electrocardiogram: Sinus bradycardia at 59 bpm, normal axis, normal intervals, no acute ST segment elevation or T-wave inversion. Results review: Lab results : Lab Flowsheet 02/03/19 22:30 EDT Sodium Level 139.0 mmol/L Potassium Level 3.9 mmol/L Chloride Level 107 mmol/L CO2 23 mmol/L Anion Gap 13.0 mmol/L Glucose Level 99.0 mg/dL BUN 13 mg/dL Creatinine Level 0.89 mg/dL BUN/Creat Ratio 15.0 eGFR AA >60 mL/min/1.73m2 NA eGFR Non AA >60 mL/min/1.73m2 NA Calcium Level 8.7 mg/dL LOW Bili Total 0.1 mg/dL LOW Alk Phos 45 IU/L AST/SGOT 24 IU/L ALT/SGPT 13.0 IU/L LOW Protein Total 6.8 gm/dL Albumin Level 3.7 gm/dL Globulin 3.1 gm/dL A/G Ratio 1.2 LOW Osmolality 278 mOsm/L NA Troponin-I <0.03 ng/mL hCG Quantitative <0.6 mIU/mL WBC 4.7 x103/mcL RBC 4.02 x106/mcL Hgb 10.6 gm/dL LOW Hct 32.7 % LOW MCV 81 fL MCH 26 pg MCHC 32 gm/dL RDW 13.3 % Platelet 243 x103/mcL MPV 9.7 fL Auto Neut % 41 % LOW Auto Lymph % 47 % Auto [place] % 8 % Auto Eos % 3.4 % Auto Baso % 0.6 % Neut Abs# 1.9 x103/mcL Lymph Abs# 2.2 x103/mcL [place] Abs# 0.4 x103/mcL Eos Abs# 0.2 x103/mcL Baso Abs# 0.0 x103/mcL D-Dimer 0.32 mg/L FEU Tube Collected Yes . Chest X-Ray: Interpretation by Emergency Physician, No acute pulmonary infiltrate, normal mediastinum, normal cardiac borders. Impression and Plan This otherwise healthy 28-year-old female presents for evaluation of left-sided chest pain. Started approximately 9 hours prior to arrival. Upon arrival an EKG was performed that was a normal sinus rhythm/sinus bradycardia without any acute changes. The patient does not smoke or have any cardiac risk factors. Cardiac labs including troponin and d-dimer are were ordered and are reviewed. The patient's labs including the troponin and d-dimer are negative. The patient did receive 324 mg of aspirin in the emergency department. Chest x-ray is negative for acute findings. The patient is hemodynamically stable and her chest pain does not appear to be cardiac in nature at this time. She'll be discharged home to follow up with her family physician. She denies any additional needs for pain medication. She is in agreement with this plan. Diagnosis Chest pain ([id number] R07.9, Discharge, Medical) Plan Condition: Improved, Stable. Disposition: Discharged: Time 02/04/19 00:18:00, to home. Prescriptions: Launch prescriptions Pharmacy: ibuprofen 600 mg oral tablet (Prescribe): 600 mg = 1 tab(s), PO, q8hr, 30 tab(s), 0 Refill(s). Patient was given the following educational materials: Nonspecific Chest Pain, Vzga-cw-Dasn, Nonspecific Chest Pain, Lfex-gc-Zbkp. Follow up with: GILBERTO SANCHEZ Within 3 to 5 days. Counseled: Patient, Family, Regarding diagnosis, Regarding diagnostic results, Regarding treatment plan, Regarding prescription, Patient indicated understanding of instructions. [Electronically Signed on: 02/04/2019 00:21 EDT] Marker D.OInez Fallon [Verified on: 02/04/2019 00:21 EDT] Marker Elton.Inez Michael [facility] ED Note-Nursingon 02-04-2019 ED Note-Nursing Patient seen in ED room 4, resting quietly on the cart, A & O x 4, appears to be in no acute distress, spouse at bedside. Pt c/o left side chest pain, 12/13, states it started today around 1300. States that she has had intermittent mild nausea during the day, denies vomiting, denies diaphoresis, sob, cough. Has not taken anything for pain. States she was feeling well prior to onset, no recent illnesses. [facility] ED Patient Education Noteon 02-04-2019 ED Patient Education Note Education Materials Gastroenterology Nonspecific Chest Pain Chest pain can be caused by many different conditions. There is a chance that your pain could be related to something serious, such as a heart attack or a blood clot in your lungs. Chest pain can also be caused by conditions that are not life-threatening. If you have chest pain, it is very important to follow up with your doctor. Follow these instructions at home: Medicines ? If you were prescribed an antibiotic medicine, take it as told by your doctor. Do not stop taking the antibiotic even if you start to feel better. ? Take mjmm-vfj-jqcmyyg and prescription medicines only as told by your doctor. Lifestyle ? Do not use any products that contain nicotine or tobacco, such as cigarettes and e-cigarettes. If you need help quitting, ask your doctor. ? Do not drink alcohol. ? Make lifestyle changes as told by your doctor. These may include: ? Getting regular exercise. Ask your doctor for some activities that are safe for you. ? Eating a heart-healthy diet. A diet specialist (dietitian) can help you to learn healthy eating options. ? Staying at a healthy weight. ? Managing diabetes, if needed. ? Lowering your stress, as with deep breathing or spending time in nature. General instructions ? Avoid any activities that make you feel chest pain. ? If your chest pain is because of heartburn: ? Raise (elevate) the head of your bed about 6 inches (15 cm). You can do this by putting blocks under the bed legs at the head of the bed. ? Do not sleep with extra pillows under your head. That does not help heartburn. ? Keep all follow-up visits as told by your doctor. This is important. This includes any further testing if your chest pain does not go away. Contact a doctor if: ? Your chest pain does not go away. ? You have a rash with blisters on your chest. ? You have a fever. ? You have chills. Get help right away if: ? Your chest pain is worse. ? You have a cough that gets worse, or you cough up blood. ? You have very bad (severe) pain in your belly (abdomen). ? You are very weak. ? You pass out (faint). ? You have either of these for no clear reason: ? Sudden chest discomfort. ? Sudden discomfort in your arms, back, neck, or jaw. ? You have shortness of breath at any time. ? You suddenly start to sweat, or your skin gets clammy. ? You feel sick to your stomach (nauseous). ? You throw up (vomit). ? You suddenly feel light-headed or dizzy. ? Your heart starts to beat fast, or it feels like it is skipping beats. These symptoms may be an emergency. Do not wait to see if the symptoms will go away. Get medical help right away. Call your local emergency services (911 in the [place] Do not drive yourself to the hospital. This information is not intended to replace advice given to you by your health care provider. Make sure you discuss any questions you have with your health care provider. Document Released: 01/08/2009 Document Revised: 04/16/2017 Document Reviewed: 04/16/2017 [employer] Interactive Patient Education ? 2019 [employer]. Normal [facility] ED Patient Summaryon 019 ED Patient Summary [facility] - Emergency Department [address] [id number] PATIENT DISCHARGE INSTRUCTIONS Patient Information Name: ALISON MANN Age: 28 Years Date of : [birth year] Reason For Visit: Chest pain; CHEST PAIN Arrival Time: 02/03/19 22:03:00 Primary Care Physician: GILBERTO SANCHEZ Attending Physician: Inez Alexander D.O. Comment: Visit Diagnosis: Diagnoses This Visit Chest pain (R07.9) Chest pain ([id number]) Prescription Information: If you have been given a prescription for narcotics, seek immediate medical attention if you have any difficulty breathing or any sudden status changes such as confusion and sleepiness. If you or anyone you know is experiencing suicidal thoughts, mental health, alcohol and/or drug addiction problems; contact the [facility] 26/02 Crisis Hotline -Otlx 6UPFM ho 976410. If you received any narcotics, sedation, or any other medication that causes drowsiness for the next 24 hours, unless otherwise directed: ? Do not drive a car. ? Do not operate machinery such as power tools, lawn mowers, drills, sewing machines, or stoves ? Avoid alcoholic beverages and drugs for allergies, nerves, or sleep ? Do not make important personal or business decisions or sign any legal documents With: Address: When: GILBERTO SANCHEZ [address] [place] [address] [address] [place] [address] Business (1) Within 3 to 5 days Medication Information: The exam and treatment you received today in the [facility] Emergency Department were for an urgent problem and are not intended as complete care. It is important for you to follow up with a doctor, nurse practitioner, or physician?s administration assistant for ongoing care. If your symptoms become worse or you do not improve as expected and you are unable to reach your usual health care provider, you should return to the Emergency Department, we are available 24 hours a day. For those patients who have received Radiology results, the interpretation of your X-ray as given to you by our Emergency Department physician is only a preliminary report. The Radiologist will review your films and if there is a change in the diagnosis you will be notified by phone. Please make sure you have provided a working phone number so we can reach you if necessary. In the event that you had a lab culture while you were a patient in the Emergency Department, you will be notified by phone if there is a need to change your antibiotic. Please make sure you have provided a working phone number so we can reach you if necessary. [facility] Emergency Department has provided you with a complete list of medications post discharge. Please inform your cad designer drafter/provider of your visit and for further instruction on these medications. Any specific questions regarding your chronic medications and dosages should be discussed with your primary care physician(s) and/or pharmacist. New Medications Printed Prescriptions ibuprofen (ibuprofen 600 mg oral tablet) 1 tab(s) Oral Every 8 hours. Refills: 0. Visit Information Allergies: Substance Reaction Symptoms Type Comments Zithromax Z-Otis Drug Vital Signs: Vitals and Measurements this Visit (last charted value for your 02/03/2019 visit) Vital Signs This Visit Temperature Oral: 36 DegC Peripheral Pulse Rate: 74 bpm Respiratory Rate: 16 br/min Systolic Blood Pressure: 126 mmHg Diastolic Blood Pressure: 81 mmHg SpO2: 100 % Oxygen Therapy: Room air Measurements This Visit Height/Length Dosin.180 cm Height/Length Estimated: 170.180 cm Weight Dosin.570 kg Weight Estimated: 72.570 kg Problems List: Problem Onset Comments No Problems found Patient Education Nonspecific Chest Pain Chest pain can be caused by many different conditions. There is a chance that your pain could be related to something serious, such as a heart attack or a blood clot in your lungs. Chest pain can also be caused by conditions that are not life-threatening. If you have chest pain, it is very important to follow up with your doctor. Follow these instructions at home: Medicines ? If you were prescribed an antibiotic medicine, take it as told by your doctor. Do not stop taking the antibiotic even if you start to feel better. ? Take ksfk-vay-uhuehma and prescription medicines only as told by your doctor. Lifestyle ? Do not use any products that contain nicotine or tobacco, such as cigarettes and e-cigarettes. If you need help quitting, ask your doctor. ? Do not drink alcohol. ? Make lifestyle changes as told by your doctor. These may include: ? Getting regular exercise. Ask your doctor for some activities that are safe for you. ? Eating a heart-healthy diet. A diet specialist (dietitian) can help you to learn healthy eating options. ? Staying at a healthy weight. ? Managing diabetes, if needed. ? Lowering your stress, as with deep breathing or spending time in nature. General instructions ? Avoid any activities that make you feel chest pain. ? If your chest pain is because of heartburn: ? Raise (elevate) the head of your bed about 6 inches (15 cm). You can do this by putting blocks under the bed legs at the head of the bed. ? Do not sleep with extra pillows under your head. That does not help heartburn. ? Keep all follow-up visits as told by your doctor. This is important. This includes any further testing if your chest pain does not go away. Contact a doctor if: ? Your chest pain does not go away. ? You have a rash with blisters on your chest. ? You have a fever. ? You have chills. Get help right away if: ? Your chest pain is worse. ? You have a cough that gets worse, or you cough up blood. ? You have very bad (severe) pain in your belly (abdomen). ? You are very weak. ? You pass out (faint). ? You have either of these for no clear reason: ? Sudden chest discomfort. ? Sudden discomfort in your arms, back, neck, or jaw. ? You have shortness of breath at any time. ? You suddenly start to sweat, or your skin gets clammy. ? You feel sick to your stomach (nauseous). ? You throw up (vomit). ? You suddenly feel light-headed or dizzy. ? Your heart starts to beat fast, or it feels like it is skipping beats. These symptoms may be an emergency. Do not wait to see if the symptoms will go away. Get medical help right away. Call your local emergency services (911 in the [place] Do not drive yourself to the hospital. This information is not intended to replace advice given to you by your health care provider. Make sure you discuss any questions you have with your health care provider. Document Released: 01/08/2009 Document Revised: 04/16/2017 Document Reviewed: 04/16/2017 [employer] Interactive Patient Education ? 2019 [employer] Viruses or Bacteria What?s got you sick? Antibiotics only treat bacterial infections. Viral illnesses cannot be treated with antibiotics. When an antibiotic is not prescribed, ask your healthcare professional for tips on how to relieve symptoms and feel better. Usual Cause Illness Viruses Bacteria Antibiotic Needed Cold/Runny Nose NO Bronchitis/Chest Cold (in otherwise healthy children and adults) NO Whooping Cough Yes Flu NO Strep Throat Yes Sore Throat (except strep) NO Fluid in the middle ear (otitis media with effusion) NO Urinary Tract Infection Yes Antibiotics Aren?t Always the Answer www.cdc.gov/getsmart GET SMART Know When Antibiotics Work [place] Department of Health and Human Services Centers for Disease Control and Prevention April 2014 Normal [facility] Extra Redon 02-04-2019 Tube Collected Yes [facility] Comment on above: Performed By: #### 7 [id number] #### [facility] (DEFAULT) [address] [place] [id number] Troponin Ion 02-04-2019 Troponin I.cardiac [Mass/Vol] ng/mL Normal <=0.03 [facility] Comment on above: Performed By: #### 7 [id number] #### [facility] (DEFAULT) [address] [place] [id number] XR Chest 2 Viewson 9 XR Chest 2 Views PROCEDURE: XR Chest 2 Views REASON FOR STUDY/CLINICAL HISTORY: Cough. COMPARISON STUDY: Prior study not available. TECHNIQUE: Frontal and lateral view(s) of the chest presented for interpretation. FINDINGS: No acute cardiopulmonary process. Minimal scattered granulomatous changes are suggested. Normal cardiomediastinal silhouette. No focal consolidation, edema, or effusion.No pneumothorax. No acute appearing focal significant bony abnormality. IMPRESSION: No acute localizing pulmonary pathology. Final Dictated by: Cirilo Nixon Dictated DT/TM: 02/04/19 0:23 Signed (Electronic Signature): Cirilo Nixon 02/04/19 5:11 am Technologist: MARCOS Normal [facility] hCG Quantitativeon 9 hCG Quantitative <0.6 Normal 0.0-0.6 [facility] Comment on above: Result Comment: Post -Menopausal Reference Range is: 0.1-11.6 mIU/mL Performed By: #### 7 [id number] #### [facility] (DEFAULT) [address] [place] [address] Encounters Encounter Date Encounter Type Care Provider Facility Start: 09-24-2023 End: 09-24-2023 ambulatory MASOOD PONCE Not Available Start: 11-17-2022 ambulatory TRAVIS JENSEN [facility] Start: 10-27-2022 End: 10-28-2022 ambulatory [facility] Start: 10-26-2022 End: 10-27-2022 ambulatory [facility] Start: 08-11-2022 End: 08-12-2022 ambulatory [facility] Start: 08-02-2022 End: 08-02-[address] MASOOD PONCE Facility: Start: 06-12-2022 End: 06-13-2022 ambulatory [facility] Start: 05-19-2022 End: 05-20-2022 ambulatory [facility] Start: 04-28-2022 End: 04-29-2022 ambulatory [facility] Start: 02-16-2022 End: 02-17-2022 ambulatory FRITZ CABRERA Facility:[facility] Payers Date Payer Category Payer Unknown [id number] 1990 Unknown [id number] 1990 Unknown [id number] 1959 Unknown [id number] Progress note 11-17-2022 Note Date & Type Note Facility 11-17-2022 Note Orthopedic Surgery Subjective Pain of the Right Ankle 11/17/22 Alison Mann is a 32 y.o. female presenting for evaluation of right ankle pain s/p Maisonnueve fracture and syndesmosis fixation in February 2022. The patient reports she has had ankle pain and swelling present since surgery, but she feels it has gotten worse since July. She reports at the end of the day she feels she is limping on the right ankle, and she has to offload with crutches if going for long distances. She denies symptoms of instability or new trauma to the ankle. She has tried Ibuprofen and PT for her pain which helped initially after surgery. Patient History Past Surgical History: Procedure Laterality Date ANKLE SURGERY MANDIBLE SURGERY History reviewed. No pertinent past medical history. Objective General: Body mass index is 27.25 kg/m???. No acute distress, comfortable Respiratory: Unlabored breathing with normal rate, no cough Cardiovascular: Warm well perfused extremities Psych: Appropriate mood behavior Evaluation of foot / ankle: - No gross deformity or malalignment. Moderate swelling diffusely about right ankle without erythema or skin breakdown - TTP over lateral hardware and anteromedial malleolus - 5/5 TA/GS/PTT/PB and EHL - Normal ankle / subtalar ROM. DF to 15, PF 35 - Normal 1st MTP and lesser MTPs ROM - No lesser toe deformities - No callus - Skin intact - No ankle laxity with -ve anterior drawer and talar tilt tests - SILT in DPN, SPN, sural and saphenous nerve distributions - 2+ DP pulse with brisk capillary refill Imaging XR ANKLE 2 VIEWS RIGHT 10/27/2022 8:58 AM CLINICAL INDICATIONS: Follow-up fixation right ankle. COMPARISON: 08/11/2022 FINDINGS: Fracture of the superior syndesmotic screw again noted. Lucency about the inferior syndesmotic screw again noted. Ankle mortise appears intact. Lucency over medial talus noted. Anterior loose body measures 7 mm. IMPRESSION: Unchanged appearance of right ankle. Lucency over medial talus may represent osteochondral defect. Assessment/Plan Alison Mann is a 32 y.o. female s/p syndesmosis fixation 02/2022 with right ankle pain over hardware and xray findings consistent with OCD lesion No diagnosis found. -Discussed operative intervention of hardware removal as an option for treatment of the patient's lateral ankle pain and swelling. We discussed the risks and benefits of operative intervention and all patient questions regarding surgery were addressed. -Patient elects to continue conservative management at this time. She can call the office or plan for surgical intervention of hardware removal in the future if she desires -Return to clinic as needed TIM IBARRA MD Orthopedic Surgery, PGY-1 Ortho Pager [phone] 11/17/22 10:16 AM By using the attestations below, the signing clinician agrees that I have read and verify that the documentation has been personally reviewed by me and ensure that the documentation accurately reflects the encounter. GC: I personally saw this patient on the day of the encounter, performed the frazier portion(s) of the service and participated in the management and confirm the resident's documentation. Please note there may be an additional personal documentation from me. [facility] Progress note 10-27-2022 Note Date & Type Note Facility 10-27-2022 Note Date of Surgery: JODEE E OF SURGERY: 02/16/2022 SURGEON: Fritz Cabrera M.D. PREOPERATIVE DIAGNOSIS: Right Maisonneuve ankle fracture. POSTPROCEDURE DIAGNOSIS: Right Ma[place]uve ankle fracture. PROCEDURE PERFORMED: Open reduction and internal fixation of right ankle syndesmosis. ASSISTANTS: 1. Ty Jenkins MD, PGY-5. 2. Sheldon Thapa MD, PGY-4. 3. Mega Celis MD, PGY-2. 4. Arnaldo Tenorio MS-4. ANESTHESIA: General, endotracheal tube. FLUIDS: Please see anesthesia report. ESTIMATED BLOOD LOSS: 5 mL. IMPLANTS: [place] 4.0 mm semi-third tubular plate with associated cortical and cancellous screws. EXPLANTS: None. SPECIMENS: None. CULTURES: None. TOURNIQUET TIME: 15 minutes at 300 mmHg. FINDINGS: Stable fixation of right ankle syndesmotic injury at the end of the case. Location: right Quality: dull Severity: moderate Context: dressing maintained clean, dry, intact Alleviating Factors: rest Aggravating Factors: movement of surgical site Associated Symptoms: no fever; no chills, no drainage, no erythema Notes: Kelly returns today reports pain in the lateral aspect of the ankle, this is worse when using stairs, better with rest, she reports chronic swelling of the ankle. She has tried NSAIDS and PT No fevers, chills, erythema Foot/Ankle Musculoskeletal Exam Gait Antalgic: right Inspection Right Erythema: none Effusion: mild Edema: none Ecchymosis: none Incision: well-healed Palpation Right Increased warmth: none Masses: none Tenderness: present Distal fibula: moderate Range of Motion Right Active Dorsiflexion: 5 Active Plantar Flexion: 35 Active Inversion: 20 Active Eversion: 15 Strength Right Extensor hallucis longus: 5/5. Flexor hallucis longus: 5/5. Tibialis posterior: 5/5. Neurovascular Right Dorsalis pedis: 2+ Capillary refill: brisk EHL: 5/5 FHL: 5/5 General Constitutional: well-developed and well-nourished Psychiatric: normal mood and affect and no acute distress Neurological: alert and oriented x3 Skin: intact Xrays ordered and reviewed show ankle joint is congruent, one syndesmotic screw has broken, likely OCD medial talar dome 1. Pain and swelling of right ankle - XR ankle 3+ views right; Future 2. Maisonneuve fracture of fibula, unspecified laterality, closed, with routine healing, subsequent encounter Plan : Refer to Dr Jensen for eval of hardware removal [facility] Progress note 08-11-2022 Note Date & Type Note Facility 08-11-2022 Note Date of Surgery: JODEE E OF SURGERY: 02/16/2022 SURGEON: Fritz Cabrera M.D. PREOPERATIVE DIAGNOSIS: Right Maisonneuve ankle fracture. POSTPROCEDURE DIAGNOSIS: Right [place]uve ankle fracture. PROCEDURE PERFORMED: Open reduction and internal fixation of right ankle syndesmosis. ASSISTANTS: 1. Ty Jenkins MD, PGY-5. 2. Sheldon Thapa MD, PGY-4. 3. Mega Celis MD, PGY-2. 4. Arnaldo Tenorio, MS-4. ANESTHESIA: General, endotracheal tube. FLUIDS: Please see anesthesia report. ESTIMATED BLOOD LOSS: 5 mL. IMPLANTS: [place] 4.0 mm semi-third tubular plate with associated cortical and cancellous screws. EXPLANTS: None. SPECIMENS: None. CULTURES: None. TOURNIQUET TIME: 15 minutes at 300 mmHg. FINDINGS: Stable fixation of right ankle syndesmotic injury at the end of the case. Location: right Quality: dull Severity: moderate Context: dressing maintained clean, dry, intact Alleviating Factors: rest Aggravating Factors: movement of surgical site Associated Symptoms: no fever; no chills, no drainage, no erythema Notes: Kelly returns today reports she has been doing very well until recently developed ankle pain, is walking with a limp, no injury. No fevers, chills, erythema Foot/Ankle Musculoskeletal Exam Gait Antalgic: right Inspection Right Erythema: none Effusion: none Edema: none Ecchymosis: none Incision: well-healed Palpation Right Increased warmth: none Masses: none Tenderness: present Distal fibula: moderate Medial malleolus: moderate Range of Motion Right Active Dorsiflexion: 5 Active Plantar Flexion: 35 Active Inversion: 20 Active Eversion: 15 Strength Right Extensor hallucis longus: 5/5. Flexor hallucis longus: 5/5. Tibialis posterior: 5/5. Neurovascular Right Dorsalis pedis: 2+ Capillary refill: brisk EHL: 5/5 FHL: 5/5 General Constitutional: well-developed and well-nourished Psychiatric: normal mood and affect and no acute distress Neurological: alert and oriented x3 Skin: intact Xrays ordered and reviewed show ankle joint is congruent, one syndesmotic screw has broken. 1. Pain and swelling of right ankle - XR ankle 3+ views right; Future 2. Maisonneuve fracture of fibula, unspecified laterality, closed, with routine healing, subsequent encounter Plan : NSAIDs PT F/U 4 wks [facility] Progress note 06-12-2022 Note Date & Type Note Facility 06-12-2022 Note Date of Surgery: JODEE E OF SURGERY: 02/16/2022 SURGEON: Fritz Cabrera M.D. PREOPERATIVE DIAGNOSIS: Right Maisonneuve ankle fracture. POSTPROCEDURE DIAGNOSIS: Right Maisonneuve ankle fracture. PROCEDURE PERFORMED: Open reduction and internal fixation of right ankle syndesmosis. ASSISTANTS: 1. Ty Jenkins MD, PGY-5. 2. Sheldon Thapa MD, PGY-4. 3. Mega Celis MD, PGY-2. 4. Arnaldo Tenorio MS-4. ANESTHESIA: General, endotracheal tube. FLUIDS: Please see anesthesia report. ESTIMATED BLOOD LOSS: 5 mL. IMPLANTS: [place] 4.0 mm semi-third tubular plate with associated cortical and cancellous screws. EXPLANTS: None. SPECIMENS: None. CULTURES: None. TOURNIQUET TIME: 15 minutes at 300 mmHg. FINDINGS: Stable fixation of right ankle syndesmotic injury at the end of the case. Location: right Quality: dull Severity: moderate Context: dressing maintained clean, dry, intact Alleviating Factors: rest Aggravating Factors: movement of surgical site Associated Symptoms: no fever; no chills, no drainage, no erythema Notes: Is doing PT reports intermittent pain is weaning from cam boot Foot/Ankle Musculoskeletal Exam Gait Antalgic: right Inspection Right Erythema: none Effusion: none Edema: none Ecchymosis: none Incision: well-healed Palpation Right Increased warmth: none Masses: none Tenderness: present Distal fibula: mild Range of Motion Right Active Dorsiflexion: 5 Active Plantar Flexion: 35 Strength Right Extensor hallucis longus: 5/5. Flexor hallucis longus: 5/5. Tibialis posterior: 5/5. Neurovascular Right Dorsalis pedis: 2+ Capillary refill: brisk General Constitutional: well-developed and well-nourished Psychiatric: normal mood and affect and no acute distress Neurological: alert and oriented x3 Skin: intact 1. Pain in joint of right ankle 2. Maisonneuve fracture of fibula, unspecified laterality, closed, with routine healing, subsequent encounter - Ambulatory referral to Physical Therapy; Future Plan : PT F/U 4 wks repeat xrays [facility] Progress note 10-14-2022 Note Date & Type Note Facility 05-19-2022 Note Date of Surgery: JODEE E OF SURGERY: 02/16/2022 SURGEON: Fritz Cabrera M.D. PREOPERATIVE DIAGNOSIS: Right Maison[place]uve ankle fracture. POSTPROCEDURE DIAGNOSIS: Right Ma[place]uve ankle fracture. PROCEDURE PERFORMED: Open reduction and internal fixation of right ankle syndesmosis. ASSISTANTS: 1. Ty Jenkins MD, PGY-5. 2. Sheldon Thapa MD, PGY-4. 3. Mega Celis MD, PGY-2. 4. Arnaldo Tenorio MS-4. ANESTHESIA: General, endotracheal tube. FLUIDS: Please see anesthesia report. ESTIMATED BLOOD LOSS: 5 mL. IMPLANTS: [place] 4.0 mm semi-third tubular plate with associated cortical and cancellous screws. EXPLANTS: None. SPECIMENS: None. CULTURES: None. TOURNIQUET TIME: 15 minutes at 300 mmHg. FINDINGS: Stable fixation of right ankle syndesmotic injury at the end of the case. Location: right Quality: dull Severity: moderate Context: dressing maintained clean, dry, intact Alleviating Factors: rest Aggravating Factors: movement of surgical site Associated Symptoms: no fever; no chills, no drainage, no erythema Notes: Is doing PT reports intermittent pain is weaning from cam boot Foot/Ankle Musculoskeletal Exam Gait Antalgic: right Inspection Right Erythema: none Effusion: none Edema: none Ecchymosis: none Incision: well-healed Palpation Right Increased warmth: none Masses: none Tenderness: present Distal fibula: mild Range of Motion Right Active Dorsiflexion: 5 Active Plantar Flexion: 35 Strength Right Extensor hallucis longus: 5/5. Flexor hallucis longus: 5/5. Tibialis posterior: 5/5. Neurovascular Right Dorsalis pedis: 2+ Capillary refill: brisk General Constitutional: well-developed and well-nourished Psychiatric: normal mood and affect and no acute distress Neurological: alert and oriented x3 Skin: intact 1. Pain in joint of right ankle 2. Maisonneuve fracture of fibula, unspecified laterality, closed, with routine healing, subsequent encounter - Ambulatory referral to Physical Therapy; Future Plan : PT F/U 4 wks repeat xrays [facility] Progress note 04-28-2022 Note Date & Type Note Facility 04-28-2022 Note Date of Surgery: JODEE E OF SURGERY: 02/16/2022 SURGEON: Fritz Cabrera M.D. PREOPERATIVE DIAGNOSIS: Right Maison[place]uve ankle fracture. POSTPROCEDURE DIAGNOSIS: Right [place]uve ankle fracture. PROCEDURE PERFORMED: Open reduction and internal fixation of right ankle syndesmosis. ASSISTANTS: 1. Ty Jenkins MD, PGY-5. 2. Sheldon Thapa MD, PGY-4. 3. Mega Celis MD, PGY-2. 4. Arnaldo Tenorio, MS-4. ANESTHESIA: General, endotracheal tube. FLUIDS: Please see anesthesia report. ESTIMATED BLOOD LOSS: 5 mL. IMPLANTS: [place] 4.0 mm semi-third tubular plate with associated cortical and cancellous screws. EXPLANTS: None. SPECIMENS: None. CULTURES: None. TOURNIQUET TIME: 15 minutes at 300 mmHg. FINDINGS: Stable fixation of right ankle syndesmotic injury at the end of the case. Location: right Quality: dull Severity: moderate Context: dressing maintained clean, dry, intact Alleviating Factors: rest Aggravating Factors: movement of surgical site Associated Symptoms: no fever; no chills Notes: Doing well is on crutches today Post Operative Exam: General Appearance: no swelling, tenderness, or warmth and wound clean and dry and neurovascular intact. Calf soft and nontender bilateral 1. Pain in joint of right ankle 2. [place]isonneuve fracture of fibula, unspecified laterality, closed, with routine healing, subsequent encounter - Ambulatory referral to Physical Therapy; Future Plan : PT F/U 4 wks repeat xrays [facility] Summary Purpose Family History No Family History Records FoundNo Family History Records FoundNo Family History Records FoundNo Family History Records FoundNo Family History Records FoundNo Family History Records Found Advance Directives No Advanced Directives Records FoundNo Advanced Directives Records FoundNo Advanced Directives Records FoundNo Advanced Directives Records FoundNo Advanced Directives Records FoundNo Advanced Directives Records Found Additional Source Comments INFORMATION SOURCE (unrecogn ized section and content) DATE CREATED AUTHOR 02/16/2019 [facility] DATE CREATED AUTHOR AUTHOR'S ORGANIZ ATION 02/15/2022 [facility] DATE CREATED AUTHOR AUTHOR'S ORGANIZ ATION 04/05/[address] [facility] DATE CREATED AUTHOR AUTHOR'S ORGANIZ ATION 08/04/2022 [facility] DATE CREATED AUTHOR AUTHOR'S ORGANIZ ATION 11/21/2022 [facility] DATE CREATED AUTHOR AUTHOR'S ORGANIZ ATION 09/25/2023 [facility] EPIC FOR RECORDS PERTAINING TO PATIENTS WHO ARE OR HAVE BEEN ENROLLED IN A CHEMICAL DEPENDENCY/SUBSTANCEABUSE PROGRAM, SOME INFORMATION MAY BE OMITTED. This clinical summary was aggregated from multiple sources. Caution should be exercised in using it in the provision of clinical care. This summary normalizes information from multiple sources, and as a consequence, information in this document may materially change the coding, format and clinical context of patient data. In addition, data may be omitted in some cases. CLINICAL DECISIONS SHOULD BE BASED ON THE PRIMARY CLINICAL RECORDS. [employer] [facility]. provides no warranty or guarantee of the accuracy or completeness of information in this document.
--- NOTE | 2023-09-29 09:28 | US_ITS ---
The [address] [address] Patient Name: ALISON MANN MRN: [id number] date: 1990 Sex: F Assigned Patient Location: Current Patient Location: Accession/Order Number: [id number] Exam Date: 09/29/2023 09:35 Report Date: 10/01/2023 11:58 At the request of: MASOOD PONCE Procedure: US pelvis w/ transvaginal EXAMINATION: US pelvis w/ transvaginal HISTORY: PELVIC PAIN IN FEMALE R10.2 COMPARISON: No relevant comparison available. FINDINGS: The uterus measures 10.0 x 5.7 x 6.5 cm, retroverted. Identified in the posterior fundal myometrium is a 1.6 x 1.7 cm area of hypoechogenicity. A uterine fibroid is favored. Multiple areas of anechoic echogenicity cervix measuring up to 0.9 cm, nabothian cysts are favored. The endometrium measures 11.1 mm. The right ovary is normal measuring 2.7 x 1.6 x 1.9 cm. Normal color Doppler flow. The left ovary measures 3.4 x 1.7 x 1.8 cm. Normal color Doppler flow. Small amount of free pelvic fluid in the cul-de-sac. Prominent left adnexal vessels US/US pelvis w/ transvaginal IMPRESSION: 1.7 cm myometrial mass, a fibroid is statistically favored Prominent left adnexal vessels, consider uterine vein reflux Electronically authenticated by: JASON HOBSON Date: 10/01/2023 11:58
== END 2023-09-29 09:12 | disposition home or self-care (01) ==
LOC: US 09:12
PROVIDERS: PCP Obstetrics & Gynecology; Visit Provider Obstetrics & Gynecology
DX: R10.2 Pelvic and perineal pain (principal); R19.00 Intra-abdominal and pelvic swelling, mass and lump, unspecified site
CPT/HCPCS: 76830; 76856

== ENCOUNTER 2024-09-30 19:40 | Outpatient (REF) | payer OTHER, SELFPAY ==
--- OUTSIDE RECORDS SUMMARY | 2024-09-30 19:45 | XMS_ITS | CCD ---
Author Organization [facility] Care Team Providers Care Information Technology Associate Name Role Phone FRITZ CABRERA Attending Unavailable JAMES, FRITZ Admitting Unavailable UNKNOWN, PHYSICIAN Referring Unavailable UNKNOWN, PHYSICIAN Primary Care Unavailable KRIS, DR CORREIA Admitting Unavailable KRIS, DR CORREIA Attending Unavailable REQUEST, NONE LISTED Primary Care Unavaila ble KRIS, DR CORREIA Consulting Unavailable LAURIE, CARLIN Attending Unavailable LAURIE, CARLIN Attending Unavailable LAURIE, CARLIN Referring Unavailable LAURIE, CARLIN Referring Unavailable LAURIE, CARLIN Referring Unavailable LAURIE, CARLIN Referring Unavailable LAURIE, CARLIN Referring Unavailable LAURIE, CARLIN Referring Unavailable LAURIE, CARLIN Attending Unavailable TRAVIS JENSEN Attending Unavailable LAURIE, CARLIN Attending Unavailable LAURIE, CARLIN Attending Unavailable KRIS, MASOOD Attending Unavailable KRIS, MASOOD Attending Unavailable TERESA DC Attending Unavailable Allergies Allergy Classification Reported Allergen(s) Allergy Type Date of Onset Reaction(s) Facility (2 sources) Azithromycin Drug Allergy 08-06-2006 [facility] Repository (2 sources) Azithromycin; Translations: [AZITHROMYCIN] Drug Allergy 05-02-2021 [facility] Repository Problems Active Problems Problem Classification Problem Date Documented Date Episodic/Chronic Immunizations and screening for infectious disease (1 source) Encounter for screening for human papillomavirus (HPV); Translations: [ENC SCREENING HUMAN PAPILLOMAVIRUS] Onset: 08-04-2022 Episodic Other ear and sense organ disorders (1 source) Impacted cerumen; Translations: [Impacted cerumen, bilateral] 03-12-2024 Episodic Other ear and sense organ disorders (1 source) Impacted cerumen, bilateral; Translations: [Impacted cerumen] 03-12-2024 Episodic Other nervous system disorders (2 sources) [...] Interpretation Reference Range Facility Follow-Upon 11-17-2022 Follow-Up [id number] Kori Mann 1990 F Date Provider Department Center 11/17/2022 TRAVIS JONES MP ORTHO HASMUKH Family History Family history unknown: Yes Family Status - Relation Status Age at Mother Alive Father Alive Level of Service:17273 [place] OFFICE/OUTPATIENT ESTABLISHED LOW MDM 20-29 MIN (GC) Reason for Visit and Comments: Pain [136] Normal [facility] Follow-Upon 10-27-2022 Follow-Up [id number] Kori Mann 1990 F Date Provider Department Center 10/27/2022 CARLIN WILSON MP Family History Family history unknown: Yes Family Status - Relation Status Age at Mother Alive Father Alive Level of Service:23549 [place] OFFICE/OUTPATIENT ESTABLISHED LOW MDM 20-29 MIN Reason for Visit and Comments: Follow-up [287055] Pain [136] Normal [facility] Letter (Out)on 08-14-2022 Letter (Out) [id number] Kori Mann 1990 F Date Provider Department Center 08/14/2022 CARLIN WILSON MP Family History Family history unknown: Yes Family Status - Relation Status Age at Mother Alive Father Alive Normal [facility] Follow-Upon 08-11-2022 Follow-Up [id number] Kori Mann 1990 Date Provider Department Center 08/11/2022 CARLIN WILSON MP Family History Family history unknown: Yes Family Status - Relation Status Age at Mother Alive Father Alive Level of Service:95431 [place] OFFICE/OUTPATIENT ESTABLISHED LOW MDM 20-29 MIN Reason for Visit and Comments: Follow-up [439848] - Pt here for right ankle follow up with review of xr Normal [facility] Follow-Upon 06-12-2022 Follow-Up [id number] Kori Mann 1990 Date Provider Department Center 06/12/2022 CARLIN WILSON MP Family History Family history unknown: Yes Family Status - Relation Status Age at Mother Alive Father Alive Level of Service:77421 [place] OFFICE/OUTPATIENT ESTABLISHED LOW MDM 20-29 MIN Reason for Visit and Comments: Follow-up [190114] - Pt here for right ankle with review of xr Normal [facility] Office Visiton 05-19-2022 Follow-up visit [id number] Kori Mann 1990 Provider Department Center 05/19/2022 CARLIN WILSON MP Family History Family history unknown: Yes Family Status - Relation Status Age at Mother Alive Father Alive Level of Service:49299 [place] OFFICE/OUTPATIENT ESTABLISHED LOW MDM 20-29 MIN Reason for Visit and Comments: Pain [136] Normal [facility] Office Visiton 04-28-2022 Follow-up visit [id number] Kori Mann 1990 Date Provider Department Center 04/28/2022 CARLIN WILSON MP Family History Family Status - Relation Status Age at Mother Alive Father Alive Level of Service:55284 [place] POSTOP FOLLOW UP VISIT RELATED TO ORIGINAL PX Reason for Visit and Comments: Follow-up [476441] - Pt present for right ankle review of x ray Normal [facility] ANKLE LEFT 3 VWSon 2 ANKLE LEFT 3 [facility] Department of Radiology [address] [place] [phone] ======== Patient Name: ALISON MANN : 1990 Sex: F Age: Race: Black Pt. Location: Patient Status: Ordered Date: 03/31/2022 8:25:00 AM Completed Date: 03/31/2022 08:28 AM Requesting Provider: CARLIN SULLIVAN Attending Provider: Report Copy To: Signs & Symptoms: M25.572 Pain in left ankle and joints of left foot I10 History: [place] Comments: Evaluate Exam: ANKLE LEFT 3 [facility] ======== ANKLE RIGHT 3 [facility] 03/31/2022 8:28 AM CLINICAL INDICATIONS: M25.572 [...] report. Electronically signed: Teresa Cardozo. Transcribed by: [email or web address], User Resident: KELLY PAUL Electronically Signed by: TERESA CARDOZO @ 03/31/2022 12:07 PM I personally read this/these film(s) with this resident Normal [facility] Comment on above: Order Comment: Evalu ate ANKLE RIGHT 3 VWSon 02-28-20 ANKLE RIGHT 3 VWS [facility] Department of Radiology [address] [place] [phone] ======== Patient Name: ALISON MANN : 1990 Sex: F Age: Race: Black Pt. Location: Patient Status: D Ordered Date: 02/27/2022 9:15:00 AM Completed Date: 02/27/2022 09:18 AM Requesting Provider: FRITZ CABRERA Attending Provider: FRITZ CABRERA Report Copy To: Signs & Symptoms: Z48.89 Encounter for other specified surgical aftercare I10 History: [place] Comments: Exam: ANKLE RIGHT 3 S ======== [...] tibia/fibula. Electronically signed: Kolton Pemberton. Transcribed by: [email or web address], User Resident: Electronically Signed by: KOLTON U PEMBERTON @ 02/28/2022 02:35 PM Normal [facility] Operative Reporton Operative Report MR#: [id number] S [facility] Pt. Name: Alisno Mann Room #: 0C Discharge Date: Birthdate: [...] report. ESTIMATED BLOOD LOSS: 5 mL. IMPLANTS: Pickford 4.0 mm semi-third tubular plate with associated [...] Fritz Cabrera M.D. 02/17/2022 09:40 A Fritz Cabrera M.D. I was present for the frazier and critical portions and I was otherwise immediately available to assist. Date Dict: 02/16/2022/03:56 P/Sheldon Thapa MD Date Trans: 02/16/2022 11:58 P/mmo [id number] Normal [facility] ANKLE RIGHT 2 [facility] 02-17-20 ANKLE RIGHT 2 [facility] Department of Radiology [address] [place] [phone] ======== Patient Name: ALISON MANN : 1990 Sex: F Age: Race: Black Pt. Location: OUTP Patient Status: O Ordered Date: 02/16/2022 7:10:00 AM Completed Date: 02/16/2022 04:23 PM Requesting Provider: FRITZ CABRERA Attending Provider: FRITZ CABRERA Report Copy To: Signs & Symptoms: Intra op c-arm, ORIF right ankle syndesmosis History: Intra op c-arm, ORIF right ankle syndesmosis Comments: Exam: ANKLE RIGHT 2 [facility] ======== ANKLE RIGHT 2 S 02/16/2022 4:23 PM CLINICAL INDICATIONS: Intra op [...] report. Electronically signed: JEN JARRETT. Transcribed by: [email or web address], User Resident: Electronically Signed by: JEN JARRETT @ 02/17/2022 05:57 PM Normal [facility] POC GLUCOSE LABon 02-16-2022 Glucose [Mass/Vol] 77 mg/dL Normal 70-100 [facility] Comment on above: Performed By: #### 8 5499 #### [facility] [address] POC URINE PREGNANCYon 2021 Beta HCG ( test) Ql (U) Negative Normal NEGATIVE [facility] Comment on above: Result Comment: Perf ormed in PACU Performed By: #### 8 4140 ####[facility] *MRSA/MSSA DNA NASALon 02-15 *MRSA/MSSA DNA NASAL Clinical Report: (D) Specimen: NASAL SWAB Collected: 02/15/2022 16:00 Status: Final Last Updated: 02/16/2022 10:32 MSSA DNA (Final) Methicillin Susceptible Staphylococcus aureus DNA Detected MRSA DNA (Final) Negative Normal [facility] Comment on above: Performed By: #### 3 1595 #### [facility] [address] ANKLE RIGHT 3 VWSon 02-16-20 22 ANKLE RIGHT 3 S [facility] Department of Radiology [address] [place] [phone] ======== Patient Name: ALISON MANN : 1990 Sex: F Age: Race: Black Pt. Location: Patient Status: D Ordered Date: 02/15/2022 2:15:00 [...] pathology. Electronically signed: Bro Rose. Transcribed by: [email or web address], User Resident: Electronically Signed by: BRO ROSE @ 02/18/2022 03:34 PM Normal [facility] Comment on above: Order Comment: Evalu ate APTTon 02-15-2022 aPTT Coag (Bld) [Time] 28.8 s Normal 25.0-35.0 [facility] Comment on above: Result Comment: ALL RESULTS [...] THIS PURPOSE. Performed By: #### 5 7307, 57489 #### [facility] [address] [facility] [place] [address], [facility] BASIC METABOLIC PANELon 02-03 Calcium [Mass/Vol] 9.3 mg/dL Normal 8.6-10.[address] [facility] Comment on above: Performed By: #### 0 0071, 91957 #### [facility] [address] [facility] [place] [address], [facility] Chloride [Moles/Vol] 107 mmol/L Normal 98-107 [facility] Comment on above: Performed By: #### 0 0071, 51302 #### [facility] [address] [facility] [place] [address], [facility] CO2 [Moles/Vol] 21 mmol/L Normal 21-31 [facility] Comment on above: Performed By: #### 0 0071, 75592 #### [facility] [address] [place] [address], [facility] Creatinine [Mass/Vol] 0.73 mg/dL Normal 0.60-1.20 [facility] Comment on above: Performed By: #### 0 0071, 43939 #### [facility] [address] [place] [address], [place] GFR/1.73 sq M.predicted among blacks MDRD (S/P/Bld) [Vol rate/Area] mL/min/{1.73_m2} Normal >60 [facility] Comment on above: Performed By: #### 0 70, 71617 #### [facility] [address] [place] [address], [facility] GFR/1.73 sq M.predicted among non-blacks MDRD (S/P/Bld) [Vol rate/Area] mL/min/{1.73_m2} Normal >60 [facility] Comment on above: Performed By: #### 0 007, 48221 #### [facility] [address] [place] [address], [facility] Glucose [Mass/Vol] 82 mg/dL Normal 70-100 [facility] Comment on above: Performed By: #### 0 70, #### [facility] [address] [place] [address], [facility] Potassium [Moles/Vol] 3.9 mmol/L Normal 3.5-5.1 [facility] Comment on above: Performed By: #### 0 70, #### [facility] [address] [place] [address], [facility] Sodium [Moles/Vol] 137 mmol/L Normal 136-145 [facility] Comment on above: Performed By: #### 0 70, #### [facility] [address] [place] [address], [facility] Urea nitrogen [Mass/Vol] 13 mg/dL Normal 7-25 [facility] Comment on above: Performed By: #### 0 70, 21035 #### [facility] [address] [place] [address], [facility] CBC W/DIFFon 02-15-2022 ABS IMM GRANS 0.0 10*3/uL Normal 0.0-0.2 The [facility] Comment on above: Performed By: #### 5 0103 #### [facility] [address] [facility] [place] [address], [facility] ABS NEUTROPHILS 4.0 10*3/uL Normal 1.6-7.6 The [facility] Comment on above: Performed By: #### 5 0103 #### [facility] [address] [facility] [place] [address], [facility] Basophils (Bld) [#/Vol] 0.0 10*3/uL Normal 0.0-0.2 [facility] Comment on above: Performed By: #### 5 0103 #### [facility] [address] [facility] [place] [address], [facility] Basophils/100 WBC (Bld) 0.5 % Normal 0.0-1.0 [facility] Comment on above: Performed By: #### 5 0103 #### [facility] [address] [facility] [place] [address], [facility] Eosinophils (Bld) [#/Vol] 0.0 10*3/uL Normal 0.0-0.5 [facility] Comment on above: Performed By: #### 5 0103 #### [facility] [address] [place] [address], [facility] Eosinophils/100 WBC (Bld) 0.5 % Normal 0.0-6.0 [facility] Comment on above: Performed By: #### 5 0103 #### [facility] [address] [place] [address], [facility] Erythrocyte distribution width (RBC) [Ratio] 12.6 % Normal 11.5-15.0 [facility] Comment on above: Performed By: #### 5 0103 #### [facility] [address] [place] [address], [facility] Hematocrit (Bld) [Volume fraction] 39.8 % Normal 36.0-45.0 [facility] Comment on above: Performed By: #### 5 0103 #### [facility] [address] Hemoglobin (Bld) [Mass/Vol] 13.3 g/dL Normal 12.0-15.0 [facility] Comment on above: Performed By: #### 5 0103 #### [facility] [address] [place] [address], [facility] IMMATURE GRANS 0.0 % Normal 0.0-1.0 [facility] Comment on above: Performed By: #### 5 0103 #### [facility] [address] [place] [address], [facility] Lymphocytes (Bld) [#/Vol] 1.4 10*3/uL Normal 1.2-4.0 [facility] Comment on above: Performed By: #### 5 0103 #### [facility] [address] [place] [address], [facility] Lymphocytes/100 WBC (Bld) 24.6 % Normal 20.0-45.0 [facility] Comment on above: Performed By: #### 5 0103 #### [facility] [address] MCH (RBC) [Entitic mass] 29.1 pg Normal 27.0-33.0 [facility] Comment on above: Performed By: #### 5 0103 #### [facility] [address] [facility] [place] [address], [facility] MCHC (RBC) [Mass/Vol] 33.4 g/dL Normal 32.0-35.0 [facility] Comment on above: Performed By: #### 5 0103 #### [facility] [address] [place] [address], [facility] MCV (RBC) [Entitic vol] 87.1 fL Normal 82.0-98.0 [facility] Comment on above: Performed By: #### 5 3 #### [facility] [address] [facility] [place] [address], [facility] Monocytes (Bld) [#/Vol] 0.3 10*3/uL Normal 0.1-1.0 [facility] Comment on above: Performed By: #### 5 0103 #### [facility] [address] [place] [address], [facility] MONOS 5.5 % Normal 5.0-12.0 [facility] Comment on above: Performed By: #### 5 0103 #### [facility] [address] [facility] [place] [address], [facility] Neutrophils/100 WBC (Bld) 68.9 % Normal 40.0-72.0 [facility] Comment on above: Performed By: #### 5 3 #### [facility] [address] [facility] [place] [address], [facility] Nucleated RBC/100 WBC (Bld) [Ratio] 0 % Normal 0-0 [facility] Comment on above: Performed By: #### 5 0103 #### [facility] [address] [facility] [place] [address], [facility] PLAT CNT 273 10*3/uL Normal 150-400 [facility] Comment on above: Performed By: #### 5 102 #### [facility] [address] [facility] [place] [address], [facility] RBC (Bld) [#/Vol] 4.57 10*6/uL Normal 3.80-5.00 [facility] Comment on above: Performed By: #### 5 0103 #### [facility] [address] [facility] [place] [address], [facility] WBC (Bld) [#/Vol] 5.85 10*3/uL Normal 4.00-10.60 [facility] Comment on above: Performed By: #### 5 3 #### [facility] [address] [facility] [place] [address], [facility] POC SARS COV2 IDon 07-13-202 2 SARS-CoV-2 (COVID-19) RNA MIRNA+probe Ql (Unsp spec) Negative Normal NEGATIVE [facility] Comment on above: Result Comment: TRISTEN Duran OW COVID-19 assay performed on the ID [...] of Accreditation. Performed By: #### 3 1921 ####[facility]3000 [facility].[address] PROTHROMBIN TIMEon 2 INR Coag (PPP) [Relative time] 0.99 {INR} Normal 0.91-1.16 [facility] Comment on above: Result Comment: ACCC P [...] CHEST 1995;108:231S-246S. Performed By: #### 5 7307, 74089 #### [facility] [address] PT Coag (PPP) [Time] 13.1 s Normal 12.3-14.8 [facility] Comment on above: Result Comment: ALL RESULTS MUST BE INTERPRETED WITH RESPECT TO BLOOD DRAWING ARTIFACT OR DILUTION ERROR OF ANTICOAGULANT AT THE TIME OF SAMPLING. Performed By: #### 5 7307, 66680 #### [facility] [address] [facility] VITAMIN D 25-HYDROXYon 02-15 VITAMIN D 25-OH 32.1 ng/mL Normal 30.0-80.0 [facility] Comment on above: Result Comment: >80. 0 Toxicity possible Performed By: #### 0 0071, 95143 #### [facility] [address] MRI Ankle w/o Righton 2021 MRI [...] by Junito Aviles on 02/14/2022 1453 Normal [facility] Distribution Tech Coding Summaryon 02-11-2019 Coding Summary CODING DATE: 02/11/2019 [facility] STATUS: Home PAYOR: Commercial Insurance ADMIT DX: [...] Alexia Hahn Date Saved: 02/11/2019 11:38 am [facility] Coding Summary CODING DATE: 02/11/2019 [facility] STATUS: Home PAYOR: Commercial Insurance APC DESCRIPTION [...] Alexia Hahn Date Saved: 02/11/2019 11:37 am [facility] .Auto Diff 102-04-2019 Auto Saline % 8 % Normal 08-17 [facility] Comment on above: Performed By: #### 7 551923, 2024227, [id number], 73734056, [id number], 8670999, 7554841 #### [facility] (DEFAULT) [address] [place] [address] Baso Abs# 0.0 x10 Normal 0.0-0.2 [facility] Comment on above: Performed By: #### 7 918895, 0577686, [id number], 37165461, [id number], 6668431, 3867856 #### [facility] (DEFAULT) [address] [place] [address] Basophils/100 WBC (Bld) 0.6 % Normal 0.2-2.0 [facility] Comment on above: Performed By: #### 7 201330, 2917554, [id number], 30293848, [id number], 6573973, 5509685 #### [facility] (DEFAULT) [address] [place] [address] Eos Abs# 0.2 x10 Normal 0.0-0.4 [facility] Comment on above: Performed By: #### 7 559014, 9962031, [id number], 09444397, [id number], 8291443, 8420599 #### [facility] (DEFAULT) [address] [place] [address] Eosinophils/100 WBC (Bld) 3.4 % Normal 0.9-4.0 [facility] Comment on above: Performed By: #### 7 784405, 3565047, 2622206040, 26761797, 6926458062, 0183394, 3654445 #### [facility] (DEFAULT) [address] [place] [address] Lymphocytes (Bld) [#/Vol] 2.2 x10 Normal 1.3-2.9 [facility] Comment on above: Performed By: #### 7 132150, 1757196, [id number], 90947862, [id number], 7463657, 1770756 #### [facility] (DEFAULT) [address] [place] [address] Lymphocytes/100 WBC (Bld) 47 % Normal 14-48 [facility] Comment on above: Performed By: #### 7 400775, 2579638, 4448738333, 67459708, 3623203405, 9445334, 6839983 #### [facility] (DEFAULT) [address] [place] [address] Saline Abs# 0.4 x10 Normal 0.0-0.8 [facility] Comment on above: Performed By: #### 7 895515, 7115378, 0117364054, 53516761, 2026900343, 5031899, 4660714 #### [facility] (DEFAULT) [address] [place] [address] Neut Abs# 1.9 x10 Normal 1.5-9.2 [facility] Comment on above: Performed By: #### 7 074384, 0991504, 5743749357, 81687605, 8682262125, 3666372, 6464603 #### [facility] (DEFAULT) [address] [place] [address] Neutrophils/100 WBC (Bld) 41 % Low 44-88 [facility] Comment on above: Performed By: #### 7 823449, 4464081, [id number], 64966184, 5310631347, 4056738, 3412830 #### [facility] (DEFAULT) [address] [place] [address] CBC w/ Auto Diffon 9 Erythrocyte distribution width (RBC) [Ratio] 13.3 % Normal 11.5-15.0 [facility] Comment on above: Performed By: #### 7 191971, 9122287, 1686330629, 83141025, 7629655820, 1901112, 2909985 #### [facility] (DEFAULT) [address] [place] [address] Hematocrit (Bld) [Volume fraction] 32.7 % Low 33.7-40.4 [facility] Comment on above: Performed By: #### 7 195126, 2808806, 3194526929, 01471633, 9654330340, 4477850, 5915854 #### [facility] (DEFAULT) [address] [place] [address] Hemoglobin (Bld) [Mass/Vol] 10.6 g/dL Low 11.3-15.9 [facility] Comment on above: Performed By: #### 7 922277, 3872351, 1424450276, 46279310, 8808392713, 2933358, 6126880 #### [facility] (DEFAULT) [address] [place] [address] Man Diff? Auto Normal [facility] Comment on above: Performed By: #### 7 028923, 9473667, [id number], 09782339, 2341420823, 0102877, 2268874 #### [facility] (DEFAULT) [address] [place] [address]224 MCH (RBC) [Entitic mass] 26 pg Normal 24-34 [facility] Comment on above: Performed By: #### 7 627740, 3486621, 5219783580, 14346314, 9345143544, 7974174, 3276005 #### [facility] (DEFAULT) [address] [place] [address] MCHC (RBC) [Mass/Vol] 32 g/dL Normal 26-37 [facility] Comment on above: Performed By: #### 7 376345, 9028648, 3220428135, 94140622, 4742407838, 4530133, 9797465 #### [facility] (DEFAULT) [address] [place] [address]25 MCV (RBC) [Entitic vol] 81 fL Normal 81-100 [facility] Comment on above: Performed By: #### 7 859455, 4920080, [id number], 78800235, [id number], [id number], [id number] #### [facility] (DEFAULT) [address] [place] [address] 92481 Platelet mean volume (Bld) [Entitic vol] 9.7 fL Normal 6.3-10.2 [facility] Comment on above: Performed By: #### 7 391910, 6668322, [id number], 04436043, [id number], 3416132, 1816277 #### [facility] (DEFAULT) [address] [place] [address] 12757 Platelets (Bld) [#/Vol] 243 x10 Normal 138-427 [facility] Comment on above: Performed By: #### 7 228543, 2644425, [id number], 01357086, 1230155292, 1379980, 4267409 #### [facility] (DEFAULT) [address] [place] [address] 31883 RBC (Bld) [#/Vol] 4.02 x10 Normal 3.70-5.30 [facility] Comment on above: Performed By: #### 7 316886, 7303127, 7329103613, 84843524, 1513786625, 7070813, 6885750 #### [facility] (DEFAULT) [address] [place] [address] WBC (Bld) [#/Vol] 4.7 x10 Normal 3.5-10.5 [facility] Comment on above: Performed By: #### 7 624181, 8779348, [id number], 45789494, 5728826421, 1946027, 1896569 #### [facility] (DEFAULT) [address] [place] [address] 34864 [facility] Standardon 02-04-2019 eGFR Non AA >60 [facility] Comment on above: Performed By: #### 7 313197, 2498142, [id number], 12195890, 8406215833, 9326973, 8583530 #### [facility] (DEFAULT) [address] [place] [address] eGFR AA >60 [facility] Comment on above: Result Comment: Multiple Spindle Screw Machine Operator maria elena Kidney disease could be indicated at eGFRs of less than 60 ml/min/1.73m2. Kidney Failure is indicated at less than 15 ml/min/1.73m2 Performed By: #### 7 783658, 6896037, [id number], 06646149, 0864638227, 4997662, 6462947 #### [facility] (DEFAULT) [address] [place] [address] 63473 Albumin [Mass/Vol] 3.7 g/dL Normal 3.5-5.0 [facility] Comment on above: Performed By: #### 7 491459, 1962569, [id number], 81995849, 3661042126, 0684349, 4451293 #### [facility] (DEFAULT) [address] [place] [address] Albumin/Globulin [Mass ratio] 1.2 {ratio} Low 1.4-2.6 [facility] Comment on above: Performed By: #### 7 415990, 3381592, 9725339472, 46898371, 1712619594, 0657193, 0122775 #### [facility] (DEFAULT) [address] [place] [address] Alk Phos 45 IU/L Normal 32-91 [facility] Comment on above: Performed By: #### 7 375072, 1720833, 6641895116, 09934567, 6930794910, 3834334, 9592262 #### [facility] (DEFAULT) [address] [place] [address] ALT/SGPT 13.0 IU/L Low 14.0-54.0 [facility] Comment on above: Performed By: #### 7 764157, 5543439, 4743200449, 48168071, 3298126036, 2651510, 7165588 #### [facility] (DEFAULT) [address] [place] [address] Anion gap [Moles/Vol] 13.0 mmol/L Normal 5.0-19.0 [facility] Comment on above: Performed By: #### 7 404782, 1826998, 2914152303, 40522715, 4997412576, 9181410, 0780284 #### [facility] (DEFAULT) [address] [place] [address] AST/SGOT 24 IU/L Normal 15-41 [facility] Comment on above: Performed By: #### 7 061255, 1812036, 1827586389, 22992441, 1499149396, 5335123, 1637472 #### [facility] (DEFAULT) [address] [place] [address] Bili Total 0.1 mg/dL Low 0.3-1.2 [facility] Comment on above: Performed By: #### 7 419957, 6127864, 4700873815, 11100291, 5974936326, 9497948, 2600256 #### [facility] (DEFAULT) [address] [place] [address] Calcium [Mass/Vol] 8.7 mg/dL Low 8.9-10.3 [facility] Comment on above: Performed By: #### 7 669885, 0699398, 1994305243, 38940007, 4974590524, 6801444, 9531662 #### [facility] (DEFAULT) [address] [place] [address] Chloride [Moles/Vol] 107 mmol/L Normal 101-111 [facility] Comment on above: Performed By: #### 7 700256, 6644552, 8581231995, 90438693, 9550328428, 6766131, 6298994 #### [facility] (DEFAULT) [address] [place] [address] CO2 [Moles/Vol] 23 mmol/L Normal 21-32 [facility] Comment on above: Performed By: #### 7 394386, 8795536, 1357752546, 89694058, 4743913595, 3173214, 2863780 #### [facility] (DEFAULT) [address] [place] [address] Creatinine [Mass/Vol] 0.89 mg/dL Normal 0.60-1.30 [facility] Comment on above: Performed By: #### 7 736605, 7638827, 4882522228, 05035386, 0708414181, 6012433, 1505579 #### [facility] (DEFAULT) [address] [place] [address] Globulin (S) [Mass/Vol] 3.1 g/dL Normal 1.5-4.3 [facility] Comment on above: Performed By: #### 7 765521, 3132018, 3515797151, 77678150, 7687262555, 2548700, 2449074 #### [facility] (DEFAULT) [address] [place] [address] 26204 Glucose [Mass/Vol] 99.0 mg/dL Normal 74.0-118.0 [facility] Comment on above: Performed By: #### 7 412590, 5498819, 3575549009, 36939995, 4125743459, 5988385, 0419126 #### [facility] (DEFAULT) [address] [place] [address] 18754 Osmolality [Osmolality] 278 mOsm/L [facility] Comment on above: Performed By: #### 7 146672, 2031421, 0390874957, 99168177, 6748878631, 5935574, 8099296 #### [facility] (DEFAULT) [address] [place] [address] 91765 Potassium [Moles/Vol] 3.9 mmol/L Normal 3.6-5.1 [facility] Comment on above: Performed By: #### 7 060152, 2789008, 2753860815, 01311646, 2586512811, 1234611, 1639677 #### [facility] (DEFAULT) [address] [place] [address] 78790 Protein [Mass/Vol] 6.8 g/dL Normal 6.5-8.1 [facility] Comment on above: Performed By: #### 7 819743, 4540788, 6173859702, 78033512, 6426340553, 5281980, 5682541 #### [facility] (DEFAULT) [address] [place] [address] 91559 Sodium [Moles/Vol] 139.0 mmol/L Normal 136.0-144.0 [facility] Comment on above: Performed By: #### 7 852270, 3438201, 5975000575, 48028902, 5402514019, 4908700, 5115335 #### [facility] (DEFAULT) [address] [place] [address] 75739 Urea nitrogen [Mass/Vol] 13 mg/dL Normal 8-26 [facility] Comment on above: Performed By: #### 7 308116, 4587429, 2813460058, 35036807, 2258889183, 2602085, 2896561 #### [facility] (DEFAULT) [address] [place] [address] 88191 Urea nitrogen/Creatinine [Mass ratio] 15.0 mg/mg Normal 4.6-16.2 [facility] Comment on above: Performed By: #### 7 554262, 2309958, 1465836144, 45779026, 9928350234, 2169440, 9048813 #### [facility] (DEFAULT) [address] [place] [address] 66871 D-Dimeron 02-04-2019 D-Dimer 0.32 mg/L FEU Normal 0.19-0.50 [facility] Comment on above: Result Comment: The INNOVANCE [...] Liver cirrhosis ? Performed By: #### 7 286128, 7271126, 9573948454, 02011941, 9779085491, 6530332, 9294341 #### [facility] (DEFAULT) [address] [place] [address] 56088 ED Clinical Summaryon 2018 ED Clinical Summary [facility] - Emergency Department [address] [place] [address] ED Clinical Summary PERSON INFORMATION Name: ALISON MANN Age: 28 Years Sex: FEMALE : [birth year] MRN: Acct#: Visit Reason: Chest pain; CHEST PAIN Arrival: 02/03/19 22:03:00 Discharge: 02/04/19 00:28:00 LOS: 000 02:25 Check In: 02/03/19 22:03:00 Checkout:02/04/19 00:28:00 Address: [place] [address] PCP: IGLBERTO SANCHEZ PROVIDER INFORMATION Provider Role Assigned Unassigned Jin KARIMI, Cynthia Ling ED Nurse 02/03/19 22:33:23 Inez Alexander D.O. ED Provider 02/03/19 22:34:26 Sana Warren RN ED Nurse 02/03/19 23:15:27 VITALS INFORMATION Vital [...] LOW Auto Lymph % 47 % Auto Saline % 8 % Auto Eos % 3.4 % Auto Baso % 0.6 % Neut Abs# 1.9 x103/mcL Lymph Abs# 2.2 x103/mcL Saline Abs# 0.4 x103/mcL Eos Abs# 0.2 x103/mcL [...] agreement with this plan. Diagnosis Chest pain (OFD54-MA R07.9, Discharge, Medical) Plan Condition: Improved, Stable. Disposition: Discharged: Time 02/04/19 00:18:00, to home. Prescriptions: Launch prescriptions Pharmacy: ibuprofen 600 mg oral tablet (Prescribe): 600 mg = 1 tab(s), PO, q8hr, 30 tab(s), 0 Refill(s). Patient was given the following educational materials: Nonspecific Chest Pain, Lkee-wc-Grys, Nonspecific Chest Pain, Gjdo-bt-Getz. Follow up with: GILBERTO SANCHEZ Within 3 to 5 days. Counseled: Patient, Family, Regarding diagnosis, Regarding diagnostic results, Regarding treatment plan, Regarding prescription, Patient indicated understanding of instructions. DISCHARGE INFORMATION: Discharge Disposition: Home Discharge Location: Home PATIENT EDUCATION INFORMATION Instructions: Nonspecific Chest Pain, Pitb-os-Bciz Follow-Up: With: Address: When: GILBERTO SANCHEZ [address] [place] [address] [address] [place] [id number] [facility] (1[facility] Within 3 to 5 days DIAGNOSIS: Chest pain Patient Understands: Yes - Patient/family/caregiv er verbalizes understanding of instructions given Comment: [facility] ED Note - Physicianon 2018 ED Note [...] LOW Auto Lymph % 47 % Auto Saline % 8 % Auto Eos % 3.4 % Auto Baso % 0.6 % Neut Abs# 1.9 x103/mcL Lymph Abs# 2.2 x103/mcL Saline Abs# 0.4 x103/mcL Eos Abs# 0.2 x103/mcL [...] agreement with this plan. Diagnosis Chest pain (BND30-GE R07.9, Discharge, Medical) Plan Condition: Improved, Stable. Disposition: Discharged: Time 02/04/19 00:18:00, to home. Prescriptions: Launch prescriptions Pharmacy: ibuprofen 600 mg oral tablet (Prescribe): 600 mg = 1 tab(s), PO, q8hr, 30 tab(s), 0 Refill(s). Patient was given the following educational materials: Nonspecific Chest Pain, Rxxq-aw-Nmvg, Nonspecific Chest Pain, Lvif-vu-Glxs. Follow up with: GILBERTO SANCHEZ Within 3 to 5 days. Counseled: Patient, Family, Regarding diagnosis, Regarding diagnostic results, Regarding treatment plan, Regarding prescription, Patient indicated understanding of instructions. [Electronically Signed on: 02/04/2019 00:21 EDT] Marker Inez Orta [Verified on: 02/04/2019 00:21 EDT] Marker Inez Orta [facility] ED Note-Nursingon 02-04-2019 ED Note-Nursing Patient seen in ED room 4, resting quietly on the cart, A & O x 4, appears to be in no acute distress, spouse at bedside. Pt c/o left side chest pain, 5/10, states it started today around 1300. States that she has had intermittent mild nausea during the day, denies vomiting, denies diaphoresis, sob, cough. Has not taken anything for pain. States she was feeling well prior to onset, no recent illnesses. [facility] ED Patient Education Noteon 02-04-2019 ED Patient [...] you start to feel better. ? Take fzbb-ifp-kxrlbmq and prescription medicines only as told by [...] 01/08/2009 Document Revised: 04/16/2017 Document Reviewed: 04/16/2017 [employer] Interactive Patient Education ? 2019 [email or web address]. Normal [facility] ED Patient Summaryon 019 ED Patient Summary [facility] - Emergency Department [address] [place] [address] PATIENT DISCHARGE INSTRUCTIONS Patient Information Name: ALISON MANN Age: 28 Years Date of : [birth year] Reason For Visit: Chest pain; CHEST PAIN Arrival Time: 02/03/19 22:03:00 Primary Care Physician: GILBERTO SANCHEZ Attending Physician: Inez Alexander D.O. Comment: Visit Diagnosis: Diagnoses This Visit Chest pain (R07.9) Chest pain ([id number]) Prescription Information: If you have been given a prescription for narcotics, seek immediate medical attention if you have any difficulty breathing or any sudden status changes such as confusion and sleepiness. If you or anyone you know is experiencing suicidal thoughts, mental health, alcohol and/or drug addiction problems; contact the [facility] 26/02 Crisis Hotline -Text 8SPPF [place] 230381. If you received any narcotics, sedation, or [...] legal documents With: Address: When: GILBERTO SANCHEZ [address] [place] [address] [address] [place] [address] Business (1) Within 3 to 5 days Medication Information: The exam and treatment you received today in the [facility] Emergency Department were for an urgent problem and are not intended as complete care. It is important for you to follow up with a doctor, nurse practitioner, or physician?s assistant grocery for ongoing care. If your symptoms become [...] so we can reach you if necessary. [facility] Emergency Department has provided you with a complete list of medications post discharge. Please inform your improvement nurse/provider of your visit and for further instruction [...] you start to feel better. ? Take ddxt-bsy-tsmkjhs and prescription medicines only as told by [...] 01/08/2009 Document Revised: 04/16/2017 Document Reviewed: 04/16/2017 [employer] Interactive Patient Education ? 2019 [email or web address]. Viruses or Bacteria What?s got you sick? [...] Disease Control and Prevention April 2014 Normal [facility] Extra Redon 02-04-2019 Tube Collected Yes [facility] Comment on above: Performed By: #### 7 191469, 0684571, [id number], 64550437, 1112765105, 0342477, 6647497 #### [facility] (DEFAULT) [address] [place] [address] 12862 Troponin Ion 02-04-2019 Troponin I.cardiac [Mass/Vol] ng/mL Normal <=0.03 [facility] Comment on above: Performed By: #### 7 339050, 3432835, 1240053514, 29214282, 9855088739, 4968072, 0602876 #### [facility] (DEFAULT) [address] [place] [address] 34005 XR Chest 2 Viewson 9 XR Chest [...] Cirilo Nixon 02/04/19 5:11 am Technologist: MARCOS Arthur [facility] hCG Quantitativeon 9 hCG Quantitative <0.6 Normal 0.0-0.6 [facility] Comment on above: Result Comment: Post -Menopausal Reference Range is: 0.1-11.6 mIU/mL Performed By: #### 7 524734, 1962485, 5991395997, 23365311, 7901828997, 6945342, 1615791 #### [facility] (DEFAULT) [address] [place] [address] Vital Signs Date Time Vital Sign Value Performing Clinician Peter bejarano 03-12-2024 16:01-0400 Body height 170.18 cm [facility] 03-12-2024 16:01-0400 Body mass index (BMI) [Ratio] 29.9 kg/m2 [facility] 03-12-2024 16:01-0400 Body temperature 98.2 [degF] [facility] 03-12-2024 16:01-0400 Body weight 86.69 kg [facility] 03-12-2024 16:01-0400 Heart rate 73 /min [facility] 03-12-2024 16:01-0400 Respiratory rate 18 /min [facility] 03-12-2024 16:01-0400 SaO2% (BldA) [Mass fraction] 99 % [facility] Encounters Encounter Date Encounter Type Care Provider Facility Start: 03-12-2024 End: 03-12-2024 ambulatory [facility] Work Phone: Start: 03-12-2024 End: 03-12-2024 Patient encounter procedure [facility] Work Phone: Start: 02-26-2024 End: 02-26-2024 ambulatory TERESA DC Not Available Start: 10-24-2023 End: 10-24-2023 ambulatory MASOOD PONCE Not Available Start: 09-24-2023 End: 09-24-2023 ambulatory MASOOD PONCE Not Available Start: 11-17-2022 ambulatory TRAVIS JENSEN [facility] Start: 10-27-2022 End: 10-28-2022 ambulatory [facility] Start: 10-26-2022 End: 10-27-2022 ambulatory [facility] Start: 08-11-2022 End: 08-12-2022 ambulatory [facility] Start: 08-02-2022 End: 08-02-[address] MASOOD PONCE Facility: Start: 06-12-2022 End: 06-13-2022 ambulatory [facility] Start: 05-19-2022 End: 05-20-2022 ambulatory [facility] Start: 04-28-2022 End: 04-29-2022 ambulatory [facility] Start: 02-16-2022 End: 02-17-2022 ambulatory FRITZ CABRERA Facility:[facility] Payers Date Payer Category Payer Unknown [id number] 2.16.8 [id number] 1990 Unknown [id number] 2.16.84 [id number] 1988 Unknown [id number] 2.16.84 [id number] 1988 Unknown [id number] 2.16.84 [id number] 1988 Unknown [id number] 2.16.84 [id number] 1959 Unknown [id number] Social History Date Type Detail Facility Start: 03-12-2024 Tobacco smoking stat NHIS Never smoked tobacco (finding) [facility] Start: 1990 Sex Assigned At Female F [facility] Progress note 11-17-2022 Note Date & Type [...] IBARRA MD Orthopedic Surgery, PGY-1 Ortho Pager [phone] 11/17/22 10:16 AM By using the attestations [...] be an additional personal documentation from me. [facility] Progress note 10-27-2022 Note Date & Type [...] report. ESTIMATED BLOOD LOSS: 5 mL. IMPLANTS: Pickford 4.0 mm semi-third tubular plate with associated [...] Dr Jensen for eval of hardware removal [facility] Progress note 08-11-2022 Note Date & Type [...] Plan : NSAIDs PT F/U 4 wks [facility] Progress note 06-12-2022 Note Date & Type Note Facility 11-07-2022 Note Date of Surgery: JODEE E OF [...] report. ESTIMATED BLOOD LOSS: 5 mL. IMPLANTS: Pickford 4.0 mm semi-third tubular plate with associated [...] : PT F/U 4 wks repeat xrays [facility] Progress note 05-19-2022 Note Date & Type Note Facility 05-19-2022 [...] : PT F/U 4 wks repeat xrays [facility] Progress note 04-28-2022 Note Date & Type [...] report. ESTIMATED BLOOD LOSS: 5 mL. IMPLANTS: Pickford 4.0 mm semi-third tubular plate with associated [...] : PT F/U 4 wks repeat xrays [facility] Evaluation note Note Date & Type Note Facility Evaluation note Diagnosis Onset Date Impacted cerumen, bilateral acute [facility] Work Phone: Summary Purpose Family History No Family History Records FoundNo Family History Records FoundNo Family History Records FoundNo Family History Records FoundNo Family History Records FoundNo Family History Records Found Advance Directives Advance Directive Response Recorded Date/ Time Advance Directives No March 12, 2 024 3:56pm Chief Complaint and Reason for Visit Chief Complaint Left earache Reason for Visit Impacted cerumen, bi lateral Additional Source Comments INFORMATION SOURCE (unrecogn ized section and content) DATE CREATED AUTHOR 02/16/2019 [facility] DATE CREATED AUTHOR AUTHOR'S ORGANIZ ATION 02/15/2022 [facility]ical Specialist DATE CREATED AUTHOR AUTHOR'S ORGANIZ ATION 04/05/2022 [facility] DATE CREATED AUTHOR AUTHOR'S ORGANIZ ATION 08/04/2022 [facility] pital DATE CREATED AUTHOR AUTHOR'S ORGANIZ ATION 11/21/2022 [facility] DATE CREATED AUTHOR AUTHOR'S ORGANIZ ATION 02/28/2024 [facility] dical Specialists EPIC Care Teams (unrecognized sec tion and content) Team Status: Active Member Role Status Dates Gilberto Sanchez MD Primary Care Provider Active Team Status: Inactive Member Role Status Dates Gilberto Sanchez MD Primary Care Provider Active Start: March 12, 2024 End: March 12, 2024 Lianet Romero APRN Attending Provider Active S tart: March 12, 2024 End: March 12, 2024 Goals (unrecognized section and content) Goals may be documented in a n alternate section FOR RECORDS PERTAINING TO PATIENTS WHO ARE [...] BE BASED ON THE PRIMARY CLINICAL RECORDS. [facility] [employer] [facility]. provides no warranty or guarantee of the accuracy or completeness of information in this document.
[2024-10-03 17:10] LABS: Age Gdln ACOG Testing Note (.); HPV Aptima Negative (Negative); IGP, Aptima HPV, rfx 16/18,45 Note (.)
== END 2024-09-30 19:41 | disposition home or self-care (01) ==
LOC: LAB 19:40
PROVIDERS: Visit Provider Obstetrics & Gynecology
DX: Z01.419 Encounter for gynecological examination (general) (routine) without abnormal findings (principal)
CPT/HCPCS: 87624; 88175